=== PATIENT | male | born 1940 | race Two or more races ===

== ENCOUNTER 2021-06-08 18:31 | Inpatient (IN) | payer OTHER ==
[2021-06-08 18:39] VITALS: BMI 20.5
[2021-06-08] MEDS ORDERED: LACTATED RINGERS SOLUTION 1000 ML INFUS.BAG IV ONE (20:11)
[2021-06-08] MEDS ORDERED: HALOPERIDOL LACTATE 5 MG/ML IM STA (20:29)
[2021-06-08] MEDS ORDERED: HALOPERIDOL LACTATE 5 MG/ML ONE ×2 (20:30→20:57)
[2021-06-08] MEDS ORDERED: HALOPERIDOL LACTATE 5 MG/ML IM ONE (20:54)
[2021-06-08] MEDS ORDERED: LORazepam 2 MG/ML SDV VIAL ONE (21:17)
[2021-06-08] MEDS ORDERED: LORazepam 2 MG/ML SDV VIAL IM STA (21:17)
[2021-06-08 22:22] LABS: BASO % 0.4 % (0-2.0); HEMATOCRIT 55.9 % (35.4-49); HEMOGLOBIN 18.8 GM/dL (11.7-16.9); LYMPH % 11.3 % (8-40); MCH 31.8 pg (25.7-33.7); MCHC 33.6 g/dl (32.0-35.9); MEAN CELL VOLUME 94.5 fl (80-96); MEAN PLT VOLUME 10.4 fl (7.5-11.1); MONO % 9.5 % (3.8-10.2); NEUT % 78.8 % (42.8-82.8); PLATELET COUNT 257 10^3/uL (134-434); RBC 5.92 M/mm3 (4.00-5.60); RDW 15.3 % (11.9-15.9); WHITE BLOOD COUNT 14.6 K/mm3 (4.0-10.0)
[2021-06-08 22:28] LABS: INR 1.27 (0.83-1.09); PROTHROMBIN TIME (PATIENT) 14.3 SEC (9.7-13.0)
[2021-06-08 22:29] LABS: EPI CELLS 33 /uL (0-25.1); HYALINE CASTS 3 /uL (0-3.1); URINE APPEARANCE CLEAR; URINE BACTERIA 16 /uL (0-1359); URINE BILIRUBIN NEGATIVE (NEGATIVE); URINE COLOR DK YELLOW; URINE GLUCOSE (UA) NEGATIVE (NEGATIVE); URINE KETONE 1+ (NEGATIVE); URINE LEUK ESTERASE NEGATIVE (NEGATIVE); URINE NITRITE NEGATIVE (NEGATIVE); URINE PROTEIN 2+ (NEGATIVE); URINE RBC 19 /uL (0-23.9); URINE WBC 11 /uL (0-25.8)
[2021-06-08 22:30] LABS: ACTIVATED PTT 26.5 SECONDS (25.2-36.5)
[2021-06-08 22:40] LABS: CHLORIDE 117 mmol/L (98-107); SODIUM 151 mmol/L (136-145)
[2021-06-08 22:42] LABS: CALCIUM 9.8 mg/dL (8.5-10.1)
[2021-06-08 22:43] LABS: ALBUMIN 3.8 g/dl (3.4-5.0); ANION GAP 12 MMOL/L (8-16); BLOOD UREA NITROGEN 64.1 mg/dL (7-18); CO2 22 mmol/L (21-32); GLUCOSE,RANDOM 169 mg/dL (74-106); LIPASE 98 U/L (73-393)
[2021-06-08 22:46] LABS: CREATININE 2.1 mg/dL (0.55-1.3); SGOT/AST 54 U/L (15-37)
[2021-06-08 22:47] LABS: BILIRUBIN,TOTAL 1.1 mg/dL (0.2-1)
[2021-06-08 22:48] LABS: ALK PHOS 133 U/L (45-117)
[2021-06-08 23:16] LABS: SGPT/ALT 53 U/L (13-61)
[2021-06-09] MEDS ORDERED: LORazepam 2 MG/ML SDV VIAL ONE (00:57)
[2021-06-09] MEDS ORDERED: SODIUM CHLORIDE 1,000 ML IV STA (01:19)
[2021-06-09] MEDS ORDERED: VANCOMYCIN 1,000 MG in DEXTROSE 5%-WATER - 250 ML IVPB ONE (01:25)
[2021-06-09] MEDS ORDERED: AMPICILLIN - 2 GM in SODIUM CHLORIDE 100 ML IVPB ONE (01:25)
[2021-06-09] MEDS ORDERED: CEFTRIAXONE 1 GM in DEXTROSE 5%-WATER - 100 ML IVPB ONE (01:25)
[2021-06-09] MEDS ORDERED: ACYCLOVIR IVPB ONE (01:27)
[2021-06-09] MEDS ORDERED: WATER IVPB ONE (01:27)
[2021-06-09] MEDS ORDERED: DEXTROSE 5% IVPB ONE (01:27)
[2021-06-09] MEDS ORDERED: LORazepam 2 MG/ML SDV VIAL IVPUSH ONE (01:29)
[2021-06-09] MEDS ORDERED: VANCOMYCIN 1 GRAM (PRE-DOCKED) 1,000 MG/250 ML BAG IVPB ONE (01:36)
[2021-06-09] MEDS ORDERED: DEXAMETHASONE SOD PHOSPHATE 10 MG/1 ML VIAL IVPUSH ONE (01:37)
[2021-06-09 02:13] LABS: CSF APPEARANCE CLEAR (CLEAR); CSF COLOR COLORLESS (COLORLESS); CSF WBC 0 mm3 (0-5)
[2021-06-09 03:25] LABS: BF GLUCOSE (CSF ONLY) 115 mg/dL (40-70)
[2021-06-09] MEDS ORDERED: AMPICILLIN SODIUM 2 GM VIAL ONE ×2 (03:47→10:21)
[2021-06-09] MEDS ORDERED: DEXAMETHASONE SOD PHOSPHATE 10 MG/1 ML VIAL ONE (03:52)
[2021-06-09] MEDS: CEFTRIAXONE 2 GM in DEXTROSE 5%-WATER 100 ML IVPB SCH ×2 (04:56→23:44)
[2021-06-09] MEDS ORDERED: HEPARIN NA (PORCINE) 5,000 UNITS/ML 1ML VIAL ONE ×2 (05:20→15:57)
[2021-06-09] MEDS: HEPARIN NA (PORCINE) 5,000 UNITS/ML 1ML VIAL SQ SCH ×3 (06:30→23:16)
[2021-06-09] MEDS: ACYCLOVIR IVPB SCH ×2 (06:30→19:33)
[2021-06-09] MEDS: SODIUM CHLORIDE 0.45% 1,000 ML IV SCH (06:30)
[2021-06-09] MEDS: SODIUM CHLORIDE IVPB SCH ×2 (06:30→19:33)
[2021-06-09 09:03] LABS: HEMATOCRIT 47.3 % (35.4-49); MCH 32.1 pg (25.7-33.7); MCHC 33.8 g/dl (32.0-35.9); MEAN CELL VOLUME 94.8 fl (80-96); PLATELET COUNT 207 10^3/uL (134-434); RBC 4.98 M/mm3 (4.00-5.60); RDW 14.9 % (11.9-15.9); WHITE BLOOD COUNT 11.3 K/mm3 (4.0-10.0)
[2021-06-09 09:14] LABS: MAGNESIUM 2.8 mg/dL (1.8-2.4)
[2021-06-09 09:17] LABS: CREATININE 1.4 mg/dL (0.55-1.3); PHOSPHOROUS 3.7 mg/dL (2.5-4.9)
[2021-06-09 09:18] LABS: BILIRUBIN,TOTAL 0.6 mg/dL (0.2-1); TOT PROT 6.4 g/dl (6.4-8.2)
[2021-06-09 10:10] LABS: ANISOCYTOSIS 1+; MACROCYTOSIS 0; PLATELET ESTIMATE NORMAL
[2021-06-09] MEDS: INSULIN SLIDING SCALE (NOVOLOG) 1 VIAL SQ SCH ×3 (10:20→20:31)
[2021-06-09] MEDS: AMPICILLIN - 2 GM in SODIUM CHLORIDE 100 ML IVPB SCH ×3 (10:23→21:34)
[2021-06-09 12:53] LABS: CALCIUM 9.2 mg/dL (8.5-10.1)
[2021-06-09 12:54] LABS: BLOOD UREA NITROGEN 50.5 mg/dL (7-18)
[2021-06-09 12:57] LABS: CREATININE 1.4 mg/dL (0.55-1.3)
[2021-06-10] MEDS ORDERED: VANCOMYCIN/WATER FOR INJ (PEG) 750 MG/150 ML BAG IVPB SCH (01:00)
[2021-06-10] MEDS ORDERED: AMPICILLIN SODIUM 2 GM VIAL ONE ×3 (01:15→18:18)
[2021-06-10] MEDS ORDERED: SODIUM CHLORIDE 100 ML IVPB ONE ×3 (01:15→18:18)
[2021-06-10] MEDS: AMPICILLIN - 2 GM in SODIUM CHLORIDE 100 ML IVPB SCH ×3 (01:18→18:39)
[2021-06-10] MEDS ORDERED: DEXTROSE 5%-WATER 100 ML IVPB ONE ×2 (05:15→16:53)
[2021-06-10] MEDS: CEFTRIAXONE 2 GM in DEXTROSE 5%-WATER 100 ML IVPB SCH ×2 (05:18→16:56)
[2021-06-10] MEDS: HEPARIN NA (PORCINE) 5,000 UNITS/ML 1ML VIAL SQ SCH ×3 (05:51→21:34)
[2021-06-10] MEDS: ACYCLOVIR IVPB SCH ×2 (05:51→17:38)
[2021-06-10] MEDS: SODIUM CHLORIDE IVPB SCH ×2 (05:51→17:38)
[2021-06-10] MEDS: INSULIN SLIDING SCALE (NOVOLOG) 1 VIAL SQ SCH ×3 (06:04→17:02)
[2021-06-10] MEDS ORDERED: PT OWN MED DRAWER 7, Y5N ONE ×2 (10:15→16:53)
[2021-06-10 12:13] LABS: BASO % 0.4 % (0-2.0); HEMATOCRIT 49.8 % (35.4-49); HEMOGLOBIN 16.7 GM/dL (11.7-16.9); MCH 31.5 pg (25.7-33.7); MCHC 33.6 g/dl (32.0-35.9); MEAN CELL VOLUME 93.7 fl (80-96); MEAN PLT VOLUME 9.6 fl (7.5-11.1); MONO % 10.1 % (3.8-10.2); NEUT % 75.5 % (42.8-82.8); PLATELET COUNT 203 10^3/uL (134-434); RBC 5.31 M/mm3 (4.00-5.60); RDW 14.9 % (11.9-15.9); WHITE BLOOD COUNT 15.5 K/mm3 (4.0-10.0)
[2021-06-10 12:31] LABS: CALCIUM 9.1 mg/dL (8.5-10.1)
[2021-06-10 12:32] LABS: BLOOD UREA NITROGEN 44.1 mg/dL (7-18)
[2021-06-10 12:35] LABS: CREATININE 1.5 mg/dL (0.55-1.3)
[2021-06-10] MEDS: SODIUM CHLORIDE 0.45% 1,000 ML IV SCH (14:53)
[2021-06-11] MEDS ORDERED: VANCOMYCIN/WATER FOR INJ (PEG) 750 MG/150 ML BAG IVPB SCH (02:30)
[2021-06-11] MEDS ORDERED: AMPICILLIN - 2 GM in SODIUM CHLORIDE 100 ML IVPB SCH (02:30)
[2021-06-11] MEDS ORDERED: DEXTROSE 5% IVPB SCH (02:33)
[2021-06-11] MEDS ORDERED: WATER IVPB SCH (02:33)
[2021-06-11] MEDS ORDERED: VANCOMYCIN IVPB SCH (02:33)
[2021-06-11] MEDS: AMPICILLIN - 2 GM in SODIUM CHLORIDE 100 ML IVPB SCH ×3 (03:28→18:20)
[2021-06-11] MEDS ORDERED: DEXTROSE 5%-WATER 100 ML IVPB ONE ×2 (04:58→16:44)
[2021-06-11] MEDS: CEFTRIAXONE 2 GM in DEXTROSE 5%-WATER 100 ML IVPB SCH ×2 (05:00→16:45)
[2021-06-11] MEDS: ACYCLOVIR IVPB SCH ×2 (06:00→16:43)
[2021-06-11] MEDS: SODIUM CHLORIDE IVPB SCH ×2 (06:00→16:43)
[2021-06-11] MEDS: INSULIN SLIDING SCALE (NOVOLOG) 1 VIAL SQ SCH ×3 (06:54→16:50)
[2021-06-11] MEDS ORDERED: AMPICILLIN SODIUM 2 GM VIAL ONE ×2 (09:59→18:06)
[2021-06-11] MEDS ORDERED: SODIUM CHLORIDE 100 ML IVPB ONE ×2 (09:59→18:06)
[2021-06-11] MEDS: SODIUM CHLORIDE 0.45% 1,000 ML IV SCH ×3 (10:04→18:36)
[2021-06-11] MEDS: HEPARIN NA (PORCINE) 5,000 UNITS/ML 1ML VIAL SQ SCH ×2 (10:04→21:11)
[2021-06-11] MEDS ORDERED: SODIUM CHLORIDE 0.45% 1,000 ML IV SCH (10:21)
[2021-06-11 11:49] LABS: HEMOGLOBIN 16.8 GM/dL (11.7-16.9); MCH 31.5 pg (25.7-33.7); MCHC 33.6 g/dl (32.0-35.9); MEAN CELL VOLUME 93.6 fl (80-96); MEAN PLT VOLUME 10.2 fl (7.5-11.1); PLATELET COUNT 175 10^3/uL (134-434); RBC 5.34 M/mm3 (4.00-5.60); RDW 14.7 % (11.9-15.9); WHITE BLOOD COUNT 12.1 K/mm3 (4.0-10.0)
[2021-06-11 12:00] LABS: CALCIUM 9.3 mg/dL (8.5-10.1)
[2021-06-11 12:01] LABS: BLOOD UREA NITROGEN 40.3 mg/dL (7-18); MAGNESIUM 2.6 mg/dL (1.8-2.4)
[2021-06-11 12:05] LABS: CREATININE 1.3 mg/dL (0.55-1.3)
[2021-06-11] MEDS: VANCOMYCIN 750 MG PREMIX BAG (RESTRICTED TO ID ONLY) IVPB SCH ×2 (18:15→18:20)
[2021-06-12] MEDS: SODIUM CHLORIDE 0.45% 1,000 ML IV SCH ×2 (02:27→10:39)
[2021-06-12] MEDS: INSULIN SLIDING SCALE (NOVOLOG) 1 VIAL SQ SCH ×3 (06:11→17:49)
[2021-06-12 09:02] LABS: ALBUMIN 2.9 g/dl (3.4-5.0); CALCIUM 8.9 mg/dL (8.5-10.1); MAGNESIUM 2.4 mg/dL (1.8-2.4)
[2021-06-12 09:05] LABS: PHOSPHOROUS 2.7 mg/dL (2.5-4.9)
[2021-06-12 09:06] LABS: CREATININE 0.9 mg/dL (0.55-1.3)
[2021-06-12 09:07] LABS: BILIRUBIN,TOTAL 0.7 mg/dL (0.2-1); TOT PROT 6.1 g/dl (6.4-8.2)
[2021-06-12 09:21] LABS: BASO % 0.4 % (0-2.0); EOS % 1.5 % (0-4.5); HEMATOCRIT 48.9 % (35.4-49); HEMOGLOBIN 16.6 GM/dL (11.7-16.9); LYMPH % 17.2 % (8-40); MCH 31.9 pg (25.7-33.7); MCHC 33.9 g/dl (32.0-35.9); MEAN PLT VOLUME 10.8 fl (7.5-11.1); NEUT % 71.9 % (42.8-82.8); PLATELET COUNT 167 10^3/uL (134-434); RBC 5.21 M/mm3 (4.00-5.60); RDW 14.8 % (11.9-15.9); WHITE BLOOD COUNT 9.9 K/mm3 (4.0-10.0)
[2021-06-12] MEDS ORDERED: cefTRIAXone SODIUM 1 GM VIAL ONE (10:40)
[2021-06-12] MEDS ORDERED: DEXTROSE 5%-WATER - 50 ML IVPB ONE (10:40)
[2021-06-12] MEDS: HEPARIN NA (PORCINE) 5,000 UNITS/ML 1ML VIAL SQ SCH ×2 (10:46→22:02)
[2021-06-12] MEDS: CEFTRIAXONE 1 GM in DEXTROSE 5%-WATER - 50 ML IVPB SCH (10:46)
[2021-06-12] MEDS: AMINO ACIDS 4.25%/D5W 1,000 ML IV SCH (17:48)
[2021-06-13] MEDS: AMINO ACIDS 4.25%/D5W 1,000 ML IV SCH ×2 (05:15→18:15)
[2021-06-13] MEDS: INSULIN SLIDING SCALE (NOVOLOG) 1 VIAL SQ SCH ×3 (07:24→16:30)
[2021-06-13] MEDS ORDERED: cefTRIAXone SODIUM 1 GM VIAL ONE (10:34)
[2021-06-13] MEDS ORDERED: DEXTROSE 5%-WATER - 50 ML IVPB ONE (10:34)
[2021-06-13] MEDS: CEFTRIAXONE 1 GM in DEXTROSE 5%-WATER - 50 ML IVPB SCH (11:18)
[2021-06-13] MEDS: HEPARIN NA (PORCINE) 5,000 UNITS/ML 1ML VIAL SQ SCH ×2 (11:18→21:13)
[2021-06-13 12:42] LABS: BASO % 0.3 % (0-2.0); EOS % 2.1 % (0-4.5); HEMATOCRIT 47.7 % (35.4-49); HEMOGLOBIN 16.3 GM/dL (11.7-16.9); LYMPH % 18.8 % (8-40); MCH 31.8 pg (25.7-33.7); MCHC 34.2 g/dl (32.0-35.9); MEAN CELL VOLUME 92.8 fl (80-96); MEAN PLT VOLUME 10.4 fl (7.5-11.1); MONO % 10.1 % (3.8-10.2); NEUT % 68.7 % (42.8-82.8); PLATELET COUNT 149 10^3/uL (134-434); RBC 5.15 M/mm3 (4.00-5.60); RDW 14.3 % (11.9-15.9); WHITE BLOOD COUNT 10.1 K/mm3 (4.0-10.0)
[2021-06-13 13:07] LABS: ALBUMIN 2.7 g/dl (3.4-5.0); CALCIUM 8.3 mg/dL (8.5-10.1)
[2021-06-13 13:08] LABS: MAGNESIUM 2.1 mg/dL (1.8-2.4)
[2021-06-13 13:10] LABS: CREATININE 0.9 mg/dL (0.55-1.3)
[2021-06-13 13:12] LABS: BILIRUBIN,TOTAL 0.7 mg/dL (0.2-1); TOT PROT 5.8 g/dl (6.4-8.2)
[2021-06-14] MEDS: AMINO ACIDS 4.25%/D5W 1,000 ML IV SCH ×2 (06:09→17:20)
[2021-06-14] MEDS: INSULIN SLIDING SCALE (NOVOLOG) 1 VIAL SQ SCH ×3 (06:14→17:20)
[2021-06-14] MEDS: MULTIVIT INJ. ADULT COMBO WITH VIT K 1 COMBO 10 ML VIAL IV SCH (06:22)
[2021-06-14 09:38] LABS: BASO % 0.3 % (0-2.0); EOS % 1.9 % (0-4.5); HEMATOCRIT 45.9 % (35.4-49); HEMOGLOBIN 15.6 GM/dL (11.7-16.9); LYMPH % 18.3 % (8-40); MCH 31.1 pg (25.7-33.7); MEAN CELL VOLUME 91.6 fl (80-96); MEAN PLT VOLUME 10.4 fl (7.5-11.1); MONO % 10.8 % (3.8-10.2); NEUT % 68.7 % (42.8-82.8); PLATELET COUNT 148 10^3/uL (134-434); RBC 5.01 M/mm3 (4.00-5.60); RDW 14.1 % (11.9-15.9); WHITE BLOOD COUNT 8.9 K/mm3 (4.0-10.0)
[2021-06-14] MEDS ORDERED: DEXTROSE 5%-WATER - 50 ML IVPB ONE (09:50)
[2021-06-14] MEDS ORDERED: cefTRIAXone SODIUM 1 GM VIAL ONE (09:50)
[2021-06-14 10:09] LABS: ALBUMIN 2.6 g/dl (3.4-5.0); BLOOD UREA NITROGEN 30.6 mg/dL (7-18); CALCIUM 8.4 mg/dL (8.5-10.1); CREATININE 0.9 mg/dL (0.55-1.3); MAGNESIUM 2.1 mg/dL (1.8-2.4)
[2021-06-14 10:10] LABS: BILIRUBIN,TOTAL 0.7 mg/dL (0.2-1); TOT PROT 5.7 g/dl (6.4-8.2)
[2021-06-14] MEDS: CEFTRIAXONE 1 GM in DEXTROSE 5%-WATER - 50 ML IVPB SCH (10:22)
[2021-06-14] MEDS: HEPARIN NA (PORCINE) 5,000 UNITS/ML 1ML VIAL SQ SCH ×3 (10:23→21:02)
[2021-06-14] MEDS ORDERED: PENICILLIN G BENZATHINE 2,400,000 UNIT/4 ML PFS IM ONE (13:30)
[2021-06-14] MEDS: CEFUROXIME AXETIL 500 MG TABLET PO SCH (21:14)
[2021-06-14] MEDS: FAT EMULSIONS 250 ML IV SCH (21:20)
[2021-06-14] MEDS ORDERED: FAT EMULSIONS 20% 250 ML PREMIX INFUS.BAG IV SCH (22:00)
[2021-06-15] MEDS: AMINO ACIDS 4.25%/D5W 1,000 ML IV SCH ×2 (04:23→17:02)
[2021-06-15] MEDS: MULTIVIT INJ. ADULT COMBO WITH VIT K 1 COMBO 10 ML VIAL IV SCH (04:59)
[2021-06-15] MEDS: INSULIN SLIDING SCALE (NOVOLOG) 1 VIAL SQ SCH ×3 (06:02→16:22)
[2021-06-15] MEDS ORDERED: PT OWN MED DRAWER 7, Y5N ONE ×4 (09:25→20:24)
[2021-06-15] MEDS: HEPARIN NA (PORCINE) 5,000 UNITS/ML 1ML VIAL SQ SCH ×2 (09:29→22:30)
[2021-06-15] MEDS: CEFUROXIME AXETIL 500 MG TABLET PO SCH (09:30)
[2021-06-15] MEDS ORDERED: ACETAMINOPHEN 1000 MG/100 ML BAG IVPB ONE (11:30)
[2021-06-15] MEDS ORDERED: cefTRIAXone SODIUM 1 GM VIAL ONE (11:44)
[2021-06-15] MEDS ORDERED: DEXTROSE 5%-WATER - 50 ML IVPB ONE (11:44)
[2021-06-15] MEDS: CEFTRIAXONE 1 GM in DEXTROSE 5%-WATER - 50 ML IVPB SCH (11:54)
[2021-06-15] MEDS: FAT EMULSIONS 250 ML IV SCH (23:07)
[2021-06-16] MEDS: AMINO ACIDS 4.25%/D5W 1,000 ML IV SCH ×2 (04:40→17:17)
[2021-06-16] MEDS: INSULIN SLIDING SCALE (NOVOLOG) 1 VIAL SQ SCH ×3 (06:06→17:22)
[2021-06-16] MEDS: MULTIVIT INJ. ADULT COMBO WITH VIT K 1 COMBO 10 ML VIAL IV SCH (06:07)
[2021-06-16] MEDS ORDERED: cefTRIAXone SODIUM 1 GM VIAL ONE (09:42)
[2021-06-16] MEDS ORDERED: DEXTROSE 5%-WATER - 50 ML IVPB ONE (09:42)
[2021-06-16] MEDS: HEPARIN NA (PORCINE) 5,000 UNITS/ML 1ML VIAL SQ SCH ×2 (09:57→21:16)
[2021-06-16] MEDS: CEFTRIAXONE 1 GM in DEXTROSE 5%-WATER - 50 ML IVPB SCH (11:34)
[2021-06-16 12:49] LABS: BASO % 0.4 % (0-2.0); EOS % 2.1 % (0-4.5); HEMATOCRIT 43.1 % (35.4-49); HEMOGLOBIN 14.9 GM/dL (11.7-16.9); LYMPH % 18.9 % (8-40); MCH 31.5 pg (25.7-33.7); MCHC 34.6 g/dl (32.0-35.9); MEAN CELL VOLUME 90.9 fl (80-96); MEAN PLT VOLUME 11.1 fl (7.5-11.1); MONO % 10.6 % (3.8-10.2); PLATELET COUNT 150 10^3/uL (134-434); RBC 4.74 M/mm3 (4.00-5.60); RDW 14.2 % (11.9-15.9); WHITE BLOOD COUNT 9.8 K/mm3 (4.0-10.0)
[2021-06-16 13:15] LABS: ALBUMIN 2.5 g/dl (3.4-5.0); BLOOD UREA NITROGEN 27.1 mg/dL (7-18); CALCIUM 8.4 mg/dL (8.5-10.1)
[2021-06-16 13:18] LABS: BILIRUBIN,TOTAL 0.4 mg/dL (0.2-1); CREATININE 0.8 mg/dL (0.55-1.3); TOT PROT 5.7 g/dl (6.4-8.2)
[2021-06-16] MEDS: KCL 10 MEQ IVPB 10 MEQ/100 ML INFUS.BAG IVPB SCH ×3 (16:25→18:43)
[2021-06-16] MEDS ORDERED: ACETAMINOPHEN 1000 MG/100 ML BAG IVPB ONE (17:24)
[2021-06-16] MEDS ORDERED: PT OWN MED DRAWER 7, Y5N ONE (18:40)
[2021-06-16] MEDS: FAT EMULSIONS 250 ML IV SCH (21:13)
[2021-06-17] MEDS: AMINO ACIDS 4.25%/D5W 1,000 ML IV SCH ×2 (04:59→16:32)
[2021-06-17] MEDS: MULTIVIT INJ. ADULT COMBO WITH VIT K 1 COMBO 10 ML VIAL IV SCH (06:00)
[2021-06-17] MEDS: INSULIN SLIDING SCALE (NOVOLOG) 1 VIAL SQ SCH ×3 (06:03→16:51)
[2021-06-17] MEDS ORDERED: cefTRIAXone SODIUM 1 GM VIAL ONE (09:59)
[2021-06-17] MEDS ORDERED: DEXTROSE 5%-WATER - 50 ML IVPB ONE (09:59)
[2021-06-17] MEDS: HEPARIN NA (PORCINE) 5,000 UNITS/ML 1ML VIAL SQ SCH ×2 (10:01→21:34)
[2021-06-17] MEDS: CEFTRIAXONE 1 GM in DEXTROSE 5%-WATER - 50 ML IVPB SCH (10:01)
[2021-06-17 12:29] LABS: BASO % 0.2 % (0-2.0); EOS % 2.2 % (0-4.5); HEMATOCRIT 43.1 % (35.4-49); HEMOGLOBIN 14.9 GM/dL (11.7-16.9); LYMPH % 19.2 % (8-40); MCH 31.7 pg (25.7-33.7); MCHC 34.6 g/dl (32.0-35.9); MEAN CELL VOLUME 91.6 fl (80-96); MEAN PLT VOLUME 10.6 fl (7.5-11.1); MONO % 11.1 % (3.8-10.2); NEUT % 67.3 % (42.8-82.8); PLATELET COUNT 163 10^3/uL (134-434); RBC 4.71 M/mm3 (4.00-5.60); RDW 14.3 % (11.9-15.9); WHITE BLOOD COUNT 10.2 K/mm3 (4.0-10.0)
[2021-06-17 12:59] LABS: BLOOD UREA NITROGEN 27.4 mg/dL (7-18)
[2021-06-17 13:00] LABS: CALCIUM 8.7 mg/dL (8.5-10.1)
[2021-06-17 13:01] LABS: ALBUMIN 2.7 g/dl (3.4-5.0)
[2021-06-17 13:04] LABS: CREATININE 0.9 mg/dL (0.55-1.3)
[2021-06-17 13:05] LABS: BILIRUBIN,TOTAL 0.4 mg/dL (0.2-1); TOT PROT 6.1 g/dl (6.4-8.2)
[2021-06-17] MEDS ORDERED: MINERAL OIL 30 ML UNIT-DOSE CUP TP ONE (14:00)
[2021-06-17] MEDS: LYTES/YERBA SANTA 60 ML SPRAY MM SCH ×2 (14:23→21:40)
[2021-06-17] MEDS: KCL 10 MEQ IVPB 10 MEQ/100 ML INFUS.BAG IVPB SCH ×2 (16:32→17:40)
[2021-06-17] MEDS ORDERED: PT OWN MED DRAWER 7, Y5N ONE (21:09)
[2021-06-17] MEDS: FAT EMULSIONS 250 ML IV SCH (21:34)
[2021-06-18] MEDS: AMINO ACIDS 4.25%/D5W 1,000 ML IV SCH ×4 (03:03→16:53)
[2021-06-18] MEDS: MULTIVIT INJ. ADULT COMBO WITH VIT K 1 COMBO 10 ML VIAL IV SCH (05:26)
[2021-06-18] MEDS: INSULIN SLIDING SCALE (NOVOLOG) 1 VIAL SQ SCH ×3 (06:26→17:01)
[2021-06-18] MEDS ORDERED: cefTRIAXone SODIUM 1 GM VIAL ONE (10:31)
[2021-06-18] MEDS ORDERED: DEXTROSE 5%-WATER - 50 ML IVPB ONE (10:31)
[2021-06-18] MEDS: HEPARIN NA (PORCINE) 5,000 UNITS/ML 1ML VIAL SQ SCH (10:40)
[2021-06-18] MEDS: CEFTRIAXONE 1 GM in DEXTROSE 5%-WATER - 50 ML IVPB SCH (10:40)
[2021-06-18] MEDS: LYTES/YERBA SANTA 60 ML SPRAY MM SCH ×2 (10:47→21:23)
[2021-06-18] MEDS: FAT EMULSION/OLIVE/SOY/PHOSPHO 250 ML IV SCH (22:30)
[2021-06-19] MEDS: AMINO ACIDS 4.25%/D5W 1,000 ML IV SCH ×4 (02:52→18:36)
[2021-06-19] MEDS ORDERED: PT OWN MED DRAWER 7, Y5N ONE (06:13)
[2021-06-19] MEDS: INSULIN SLIDING SCALE (NOVOLOG) 1 VIAL SQ SCH ×3 (06:34→17:10)
[2021-06-19] MEDS: MULTIVIT INJ. ADULT COMBO WITH VIT K 1 COMBO 10 ML VIAL IV SCH (08:08)
[2021-06-19] MEDS ORDERED: GLUCAGON 1 MG KIT IVPUSH ONE (11:58)
[2021-06-19] MEDS ORDERED: cefTRIAXone SODIUM 1 GM VIAL ONE (13:06)
[2021-06-19] MEDS ORDERED: DEXTROSE 5%-WATER - 50 ML IVPB ONE (13:07)
[2021-06-19] MEDS: CEFTRIAXONE 1 GM in DEXTROSE 5%-WATER - 50 ML IVPB SCH (13:27)
[2021-06-19] MEDS: LYTES/YERBA SANTA 60 ML SPRAY MM SCH ×2 (13:28→21:56)
[2021-06-19] MEDS ORDERED: PANTOPRAZOLE SODIUM 40 MG in SODIUM CHLORIDE 100 ML IVPB SCH (14:00)
[2021-06-19] MEDS: PANTOPRAZOLE SODIUM 40 MG VIAL IVPUSH SCH ×2 (16:02→21:56)
[2021-06-19 16:03] LABS: BASO % 0.5 % (0-2.0); EOS % 1.2 % (0-4.5); HEMATOCRIT 37.9 % (35.4-49); HEMOGLOBIN 13.1 GM/dL (11.7-16.9); LYMPH % 13.8 % (8-40); MCH 31.4 pg (25.7-33.7); MCHC 34.6 g/dl (32.0-35.9); MEAN CELL VOLUME 90.8 fl (80-96); MEAN PLT VOLUME 9.9 fl (7.5-11.1); MONO % 9.2 % (3.8-10.2); NEUT % 75.3 % (42.8-82.8); PLATELET COUNT 192 10^3/uL (134-434); RBC 4.17 M/mm3 (4.00-5.60); RDW 14.8 % (11.9-15.9); WHITE BLOOD COUNT 13.5 K/mm3 (4.0-10.0)
[2021-06-19 16:14] LABS: CALCIUM 8.9 mg/dL (8.5-10.1)
[2021-06-19 16:15] LABS: ALBUMIN 2.5 g/dl (3.4-5.0); BLOOD UREA NITROGEN 28.8 mg/dL (7-18)
[2021-06-19 16:20] LABS: BILIRUBIN,TOTAL 0.3 mg/dL (0.2-1); TOT PROT 5.8 g/dl (6.4-8.2)
[2021-06-19] MEDS: KCL 10 MEQ IVPB 10 MEQ/100 ML INFUS.BAG IVPB SCH ×3 (17:04→21:54)
[2021-06-19] MEDS: FAT EMULSION/OLIVE/SOY/PHOSPHO 250 ML IV SCH (21:56)
[2021-06-20] MEDS: AMINO ACIDS 4.25%/D5W 1,000 ML IV SCH ×2 (06:41→17:50)
[2021-06-20] MEDS: MULTIVIT INJ. ADULT COMBO WITH VIT K 1 COMBO 10 ML VIAL IV SCH (06:42)
[2021-06-20] MEDS: INSULIN SLIDING SCALE (NOVOLOG) 1 VIAL SQ SCH ×3 (06:42→17:50)
[2021-06-20] MEDS ORDERED: ACETAMINOPHEN 1000 MG/100 ML BAG IVPB PRN (09:07)
[2021-06-20] MEDS: PANTOPRAZOLE SODIUM 40 MG VIAL IVPUSH SCH ×2 (11:14→21:49)
[2021-06-20] MEDS: LYTES/YERBA SANTA 60 ML SPRAY MM SCH ×2 (12:07→21:49)
[2021-06-20] MEDS: FAT EMULSION/OLIVE/SOY/PHOSPHO 250 ML IV SCH (21:48)
[2021-06-21] MEDS: MULTIVIT INJ. ADULT COMBO WITH VIT K 1 COMBO 10 ML VIAL IV SCH (05:55)
[2021-06-21] MEDS: AMINO ACIDS 4.25%/D5W 1,000 ML IV SCH ×2 (05:55→17:12)
[2021-06-21] MEDS: INSULIN SLIDING SCALE (NOVOLOG) 1 VIAL SQ SCH ×3 (06:07→16:47)
[2021-06-21] MEDS: PANTOPRAZOLE SODIUM 40 MG VIAL IVPUSH SCH ×2 (10:27→21:35)
[2021-06-21] MEDS: LYTES/YERBA SANTA 60 ML SPRAY MM SCH ×2 (10:32→21:35)
[2021-06-21] MEDS ORDERED: PENICILLIN G BENZATHINE 2,400,000 UNIT/4 ML PFS IM ONE (18:23)
[2021-06-21] MEDS: HEPARIN NA (PORCINE) 5,000 UNITS/ML 1ML VIAL SQ SCH (21:35)
[2021-06-22] MEDS: INSULIN SLIDING SCALE (NOVOLOG) 1 VIAL SQ SCH ×3 (06:01→16:53)
[2021-06-22] MEDS: MULTIVIT INJ. ADULT COMBO WITH VIT K 1 COMBO 10 ML VIAL IV SCH (06:50)
[2021-06-22 10:07] LABS: BASO % 0.6 % (0-2.0); HEMATOCRIT 39.2 % (35.4-49); HEMOGLOBIN 13.2 GM/dL (11.7-16.9); LYMPH % 15.8 % (8-40); MCHC 33.7 g/dl (32.0-35.9); MEAN CELL VOLUME 92.1 fl (80-96); MEAN PLT VOLUME 9.8 fl (7.5-11.1); MONO % 8.7 % (3.8-10.2); NEUT % 72.9 % (42.8-82.8); PLATELET COUNT 279 10^3/uL (134-434); RBC 4.26 M/mm3 (4.00-5.60); RDW 14.9 % (11.9-15.9); WHITE BLOOD COUNT 10.7 K/mm3 (4.0-10.0)
[2021-06-22 10:11] LABS: INR 1.12 (0.83-1.09); PROTHROMBIN TIME (PATIENT) 12.6 SEC (9.7-13.0)
[2021-06-22 10:27] LABS: CALCIUM 8.9 mg/dL (8.5-10.1)
[2021-06-22 10:28] LABS: ALBUMIN 2.8 g/dl (3.4-5.0); MAGNESIUM 2.4 mg/dL (1.8-2.4)
[2021-06-22 10:33] LABS: BILIRUBIN,TOTAL 0.5 mg/dL (0.2-1); TOT PROT 5.9 g/dl (6.4-8.2)
[2021-06-22] MEDS: PANTOPRAZOLE SODIUM 40 MG VIAL IVPUSH SCH ×2 (11:56→21:01)
[2021-06-22] MEDS: LYTES/YERBA SANTA 60 ML SPRAY MM SCH ×2 (11:56→21:01)
[2021-06-22] MEDS: HEPARIN NA (PORCINE) 5,000 UNITS/ML 1ML VIAL SQ SCH ×2 (11:56→21:01)
[2021-06-23] MEDS: INSULIN SLIDING SCALE (NOVOLOG) 1 VIAL SQ SCH ×3 (06:02→17:38)
[2021-06-23] MEDS ORDERED: PT OWN MED DRAWER 7, Y5N ONE (10:35)
[2021-06-23] MEDS: PANTOPRAZOLE SODIUM 40 MG VIAL IVPUSH SCH ×2 (10:48→21:05)
[2021-06-23] MEDS: HEPARIN NA (PORCINE) 5,000 UNITS/ML 1ML VIAL SQ SCH ×2 (10:48→21:05)
[2021-06-23] MEDS: LYTES/YERBA SANTA 60 ML SPRAY MM SCH ×2 (13:11→21:04)
[2021-06-24] MEDS: ACETAMINOPHEN 650 MG/20.3 ML ORAL SOLUTION (CUPS) GT PRN ×3 (00:44→22:50)
[2021-06-24] MEDS: INSULIN SLIDING SCALE (NOVOLOG) 1 VIAL SQ SCH ×3 (06:10→17:58)
[2021-06-24] MEDS: HEPARIN NA (PORCINE) 5,000 UNITS/ML 1ML VIAL SQ SCH ×2 (11:18→21:02)
[2021-06-24] MEDS: PANTOPRAZOLE SODIUM 40 MG VIAL IVPUSH SCH ×2 (11:19→21:02)
[2021-06-24] MEDS: LYTES/YERBA SANTA 60 ML SPRAY MM SCH ×2 (11:19→21:02)
[2021-06-25] MEDS: INSULIN SLIDING SCALE (NOVOLOG) 1 VIAL SQ SCH ×3 (06:12→16:08)
[2021-06-25] MEDS: ACETAMINOPHEN 650 MG/20.3 ML ORAL SOLUTION (CUPS) GT PRN ×2 (08:13→15:39)
[2021-06-25] MEDS ORDERED: PT OWN MED DRAWER 7, Y5N ONE (09:38)
[2021-06-25] MEDS: PANTOPRAZOLE SODIUM 40 MG VIAL IVPUSH SCH ×2 (09:48→21:53)
[2021-06-25] MEDS: HEPARIN NA (PORCINE) 5,000 UNITS/ML 1ML VIAL SQ SCH ×2 (09:48→21:53)
[2021-06-25] MEDS: LYTES/YERBA SANTA 60 ML SPRAY MM SCH ×2 (09:49→21:53)
[2021-06-26] MEDS: INSULIN SLIDING SCALE (NOVOLOG) 1 VIAL SQ SCH ×3 (06:21→16:55)
[2021-06-26] MEDS: PANTOPRAZOLE SODIUM 40 MG VIAL IVPUSH SCH (10:25)
[2021-06-26] MEDS: LYTES/YERBA SANTA 60 ML SPRAY MM SCH (10:27)
[2021-06-26] MEDS: HEPARIN NA (PORCINE) 5,000 UNITS/ML 1ML VIAL SQ SCH (10:27)
[2021-06-26 21:47] VITALS: BP 109/50; PULSE 93; TEMP 98.4
[2021-06-28] MEDS ORDERED: PENICILLIN G BENZATHINE 2,400,000 UNIT/4 ML PFS IM ONE (18:24)
== END 2021-06-26 09:50 | DRG 689 ==
LOC: JER 18:31 → JERBED 06-09 02:15 → J8W 06-09 23:04
PROVIDERS: ADMIT Internal Medicine; ATTEND Nurse Practitioner Acute Care
PROC: 009U3ZX Drainage of Spinal Canal, Percutaneous Approach, Diagnostic (ICD-10-PCS; principal; 2021-06-08)
PROC: 0DH63UZ Insertion of Feeding Device into Stomach, Percutaneous Approach (ICD-10-PCS; 2021-06-19)
PROC: 3E0G76Z Introduction of Nutritional Substance into Upper GI, Via Natural or Artificial Opening (ICD-10-PCS; 2021-06-19)
DX: N39.0 Urinary tract infection, site not specified (principal); G93.41 Metabolic encephalopathy; E43 Unspecified severe protein-calorie malnutrition; N17.9 Acute kidney failure, unspecified; E87.0 Hyperosmolality and hypernatremia; M62.82 Rhabdomyolysis; R64 Cachexia; A52.3 Neurosyphilis, unspecified; F03.90 Unspecified dementia, unspecified severity, without behavioral disturbance, psychotic disturbance, mood disturbance, and anxiety; E11.9 Type 2 diabetes mellitus without complications; Z79.84 Long term (current) use of oral hypoglycemic drugs; E86.0 Dehydration; N40.0 Benign prostatic hyperplasia without lower urinary tract symptoms; A53.0 Latent syphilis, unspecified as early or late; R79.89 Other specified abnormal findings of blood chemistry; Z68.20 Body mass index [BMI] 20.0-20.9, adult
CPT/HCPCS: 36415; 49440; 70450-TC; 71045-TC-FY; 71250-TC; 74018-TC-FY; 74176-TC; 76705-TC; 76775-TC; 80048; 80053; 81003; 82140; 82550; 82553; 82570; 82607; 82945; 82962; 83036; 83615; 83690; 83735; 84100; 84156; 84157; 84166; 84300; 84443; 84478; 84484; 85025; 85027; 85610; 85730; 86592; 86593; 86694; 86735; 86765; 86780; 86787; 86788; 86789; 86850; 86900; 86901; 87040; 87070; 87086; 87205; 87529; 93005; 93010; 97161-GP; 99285-25; C9803; J0131; J1100; J1644; U0003; U0005

== ENCOUNTER 2021-08-03 18:22 | Inpatient (IN) | payer OTHER ==
[2021-08-03] MEDS ORDERED: LORazepam 2 MG/ML SDV VIAL IVPUSH ONE (20:04)
[2021-08-03] MEDS ORDERED: HALOPERIDOL LACTATE 5 MG/ML IV ONE (20:34)
[2021-08-03 20:37] LABS: CALCIUM 8.8 mg/dL (8.5-10.1)
[2021-08-03 20:38] LABS: BLOOD UREA NITROGEN 48.7 mg/dL (7-18)
[2021-08-03 20:41] LABS: CREATININE 1.4 mg/dL (0.55-1.3)
[2021-08-03 20:42] LABS: BILIRUBIN,TOTAL 0.5 mg/dL (0.2-1); TOT PROT 6.5 g/dl (6.4-8.2)
[2021-08-03] MEDS ORDERED: HALOPERIDOL LACTATE 5 MG/ML ONE (21:09)
[2021-08-03] MEDS: SODIUM CHLORIDE 0.45% 1,000 ML IV SCH (21:34)
[2021-08-03 21:56] LABS: BASO % 0.7 % (0-2.0); EOS % 5.3 % (0-4.5); HEMATOCRIT 38.9 % (35.4-49); HEMOGLOBIN 12.8 GM/dL (11.7-16.9); LYMPH % 28.5 % (8-40); MCH 31.3 pg (25.7-33.7); MEAN PLT VOLUME 10.9 fl (7.5-11.1); MONO % 10.3 % (3.8-10.2); NEUT % 55.2 % (42.8-82.8); PLATELET COUNT 159 10^3/uL (134-434); WHITE BLOOD COUNT 9.6 K/mm3 (4.0-10.0)
[2021-08-03 22:06] LABS: EPI CELLS 20 /uL (0-25.1); HYALINE CASTS 1 /uL (0-3.1); PH,URINE 5.5 (5.0-8.0); URINE APPEARANCE CLEAR; URINE BACTERIA 11 /uL (0-1359); URINE BILIRUBIN NEGATIVE (NEGATIVE); URINE COLOR YELLOW; URINE GLUCOSE (UA) NEGATIVE (NEGATIVE); URINE KETONE 1+ (NEGATIVE); URINE LEUK ESTERASE TRACE (NEGATIVE); URINE NITRITE NEGATIVE (NEGATIVE); URINE PROTEIN 1+ (NEGATIVE); URINE RBC 18 /uL (0-23.9); URINE WBC 7 /uL (0-25.8)
[2021-08-04 09:56] LABS: BASO % 0.9 % (0-2.0); EOS % 6.2 % (0-4.5); HEMATOCRIT 41.2 % (35.4-49); HEMOGLOBIN 12.7 GM/dL (11.7-16.9); LYMPH % 40.1 % (8-40); MCH 30.2 pg (25.7-33.7); MCHC 30.8 g/dl (32.0-35.9); MEAN CELL VOLUME 97.9 fl (80-96); MEAN PLT VOLUME 10.7 fl (7.5-11.1); MONO % 8.2 % (3.8-10.2); NEUT % 44.6 % (42.8-82.8); PLATELET COUNT 169 10^3/uL (134-434); RBC 4.21 M/mm3 (4.00-5.60); WHITE BLOOD COUNT 9.7 K/mm3 (4.0-10.0)
[2021-08-04 10:27] LABS: ALBUMIN 2.9 g/dl (3.4-5.0); BLOOD UREA NITROGEN 40.5 mg/dL (7-18); CALCIUM 8.7 mg/dL (8.5-10.1)
[2021-08-04 10:30] LABS: CREATININE 1.4 mg/dL (0.55-1.3)
[2021-08-04 10:32] LABS: BILIRUBIN,TOTAL 0.5 mg/dL (0.2-1); TOT PROT 6.2 g/dl (6.4-8.2)
[2021-08-05 12:10] LABS: BASO % 0.4 % (0-2.0); HEMATOCRIT 40.1 % (35.4-49); HEMOGLOBIN 12.4 GM/dL (11.7-16.9); LYMPH % 21.4 % (8-40); MCH 30.3 pg (25.7-33.7); MEAN CELL VOLUME 97.7 fl (80-96); MEAN PLT VOLUME 11.3 fl (7.5-11.1); MONO % 7.2 % (3.8-10.2); PLATELET COUNT 161 10^3/uL (134-434); RBC 4.11 M/mm3 (4.00-5.60); RDW 17.7 % (11.9-15.9); WHITE BLOOD COUNT 12.2 K/mm3 (4.0-10.0)
[2021-08-05 12:33] LABS: ALBUMIN 2.8 g/dl (3.4-5.0); BLOOD UREA NITROGEN 30.4 mg/dL (7-18); CALCIUM 8.4 mg/dL (8.5-10.1)
[2021-08-05 12:36] LABS: CREATININE 1.2 mg/dL (0.55-1.3)
[2021-08-05 12:38] LABS: TOT PROT 5.9 g/dl (6.4-8.2)
[2021-08-05] MEDS: SODIUM CHLORIDE 0.45% 1,000 ML IV SCH (21:56)
[2021-08-06 07:32] LABS: BASO % 0.4 % (0-2.0); EOS % 2.4 % (0-4.5); HEMATOCRIT 39.9 % (35.4-49); HEMOGLOBIN 12.7 GM/dL (11.7-16.9); LYMPH % 22.5 % (8-40); MCH 30.6 pg (25.7-33.7); MCHC 31.9 g/dl (32.0-35.9); MEAN CELL VOLUME 95.9 fl (80-96); MONO % 7.8 % (3.8-10.2); NEUT % 66.9 % (42.8-82.8); PLATELET COUNT 154 10^3/uL (134-434); RBC 4.16 M/mm3 (4.00-5.60); RDW 17.5 % (11.9-15.9)
[2021-08-06 07:48] LABS: ALBUMIN 2.6 g/dl (3.4-5.0); CALCIUM 7.7 mg/dL (8.5-10.1)
[2021-08-06 07:49] LABS: BLOOD UREA NITROGEN 22.4 mg/dL (7-18)
[2021-08-06 07:52] LABS: TOT PROT 5.8 g/dl (6.4-8.2)
[2021-08-06 07:53] LABS: BILIRUBIN,TOTAL 0.7 mg/dL (0.2-1)
[2021-08-06] MEDS: SODIUM BICARBONATE 650 MG TABLET PO SCH (18:52)
[2021-08-07] MEDS: SODIUM BICARBONATE 650 MG TABLET PO SCH (09:48)
[2021-08-07] MEDS ORDERED: SODIUM BICARBONATE 650 MG TABLET GT SCH (13:12)
[2021-08-07] MEDS ORDERED: ACETAMINOPHEN 650 MG/20.3 ML ORAL SOLUTION (CUPS) PEG ONE (18:47)
[2021-08-08] MEDS ORDERED: ACETAMINOPHEN 1000 MG/100 ML BAG IVPB ONE (21:27)
[2021-08-09] MEDS ORDERED: MULTIVIT-MINERALS ORAL LIQUID PO SCH (10:00)
[2021-08-09] MEDS ORDERED: SODIUM BICARBONATE 650 MG TABLET GT SCH (10:00)
[2021-08-09] MEDS ORDERED: ASCORBIC ACID 250 MG TABLET (FP) PO SCH ×2 (10:00)
[2021-08-09] MEDS ORDERED: ZINC SULFATE 220 MG CAPSULE (FP) PO SCH (10:00)
[2021-08-09 10:44] VITALS: BP 101/60; PULSE 107; TEMP 97.9
== END 2021-08-09 13:30 | disposition home health service (06) | DRG 682 ==
LOC: JER 18:22 → JERBED 22:47 → J4W 08-04 01:54 → J7W 08-08 18:15
PROVIDERS: ADMIT Internal Medicine; ATTEND Family Medicine
DX: N17.9 Acute kidney failure, unspecified (principal); E43 Unspecified severe protein-calorie malnutrition; G93.41 Metabolic encephalopathy; E87.0 Hyperosmolality and hypernatremia; N39.0 Urinary tract infection, site not specified; F03.91 Unspecified dementia, unspecified severity, with behavioral disturbance; R64 Cachexia; E11.9 Type 2 diabetes mellitus without complications; E86.0 Dehydration; Z68.20 Body mass index [BMI] 20.0-20.9, adult; D72.829 Elevated white blood cell count, unspecified; N18.9 Chronic kidney disease, unspecified; N40.0 Benign prostatic hyperplasia without lower urinary tract symptoms
CPT/HCPCS: 36415; 70450-TC; 71045-TC-FY; 72125-TC; 72170-TC-FY; 73502-TC-RT-FY; 80053; 81003; 82550; 84484; 85025; 87040; 87086; 93005; 93010; 97162-GP; 99285-25; C9803; U0003; U0005

== ENCOUNTER 2021-09-29 16:18 | Emergency (ER) | payer OTHER ==
[2021-09-29 16:36] VITALS: BP 97/60; PULSE 84; TEMP 97.7; BMI 21.5
== END 2021-09-29 19:23 | disposition home or self-care (01) ==
LOC: JER 16:18
DX: K94.23 Gastrostomy malfunction (principal)
CPT/HCPCS: 99281-25

== ENCOUNTER 2022-02-15 16:56 | Inpatient (IN) | payer OTHER ==
[2022-02-15] MEDS ORDERED: ACETAMINOPHEN 1000 MG/100 ML BAG IVPB ONE (17:46)
[2022-02-15] MEDS ORDERED: VANCOMYCIN 1 GM in D5W (PRE-DOCKED) 1,000 MG/250 ML IVPB ONE (18:30)
[2022-02-15] MEDS ORDERED: ACETAMINOPHEN INJECTION 100 ML IVPB ONE (18:37)
[2022-02-15] MEDS ORDERED: VANCOMYCIN/WATER FOR INJ (PEG) 1,000 MG/200 ML BAG IVPB ONE (18:37)
[2022-02-15 19:06] LABS: BASO % 0.4 % (0-2.0); EOS % 0.6 % (0-4.5); HEMATOCRIT 42.4 % (35.4-49); MCH 31.1 pg (25.7-33.7); MCHC 33.1 g/dl (32.0-35.9); MEAN PLT VOLUME 8.8 fl (7.5-11.1); MONO % 7.6 % (3.8-10.2); NEUT % 64.4 % (42.8-82.8); PLATELET COUNT 196 10^3/uL (134-434); RBC 4.51 M/mm3 (4.00-5.60); RDW 16.5 % (11.9-15.9); WHITE BLOOD COUNT 16.6 K/mm3 (4.0-10.0)
[2022-02-15 19:12] LABS: INR 1.19 (0.83-1.09); PROTHROMBIN TIME (PATIENT) 13.7 SEC (9.7-13.0)
[2022-02-15 19:15] LABS: ACTIVATED PTT 30.2 SECONDS (25.2-36.5)
[2022-02-15 19:18] LABS: CALCIUM 8.6 mg/dL (8.5-10.1)
[2022-02-15 19:19] LABS: ALBUMIN 3.5 g/dl (3.4-5.0)
[2022-02-15 19:22] LABS: CREATININE 1.4 mg/dL (0.55-1.3)
[2022-02-15 19:23] LABS: BILIRUBIN,TOTAL 0.4 mg/dL (0.2-1); TOT PROT 7.1 g/dl (6.4-8.2)
[2022-02-15] MEDS ORDERED: LACTATED RINGERS SOLUTION 1000 ML INFUS.BAG IV ONE (20:20)
[2022-02-15] MEDS ORDERED: morphine SULFATE 4 MG/ML VIAL IVPUSH ONE (20:42)
[2022-02-15] MEDS ORDERED: morphine SULFATE 4 MG/ML VIAL ONE (20:48)
[2022-02-15 21:02] LABS: EPI CELLS 1 /uL (0-25.1); HYALINE CASTS 1 /uL (0-3.1); PH,URINE 7.5 (5.0-8.0); URINE APPEARANCE CLEAR; URINE BACTERIA 618 /uL (0-1359); URINE BILIRUBIN NEGATIVE (NEGATIVE); URINE COLOR YELLOW; URINE GLUCOSE (UA) NEGATIVE (NEGATIVE); URINE KETONE NEGATIVE (NEGATIVE); URINE LEUK ESTERASE 2+ (NEGATIVE); URINE NITRITE NEGATIVE (NEGATIVE); URINE PROTEIN TRACE (NEGATIVE); URINE RBC 10 /uL (0-23.9); URINE UROBILINOGEN 0.2 mg/dL (0.2-1.0); URINE WBC 864 /uL (0-25.8)
[2022-02-16] MEDS ORDERED: CEFTRIAXONE 1 GM in DEXTROSE 5%-WATER - 100 ML IVPB ONE (00:38)
[2022-02-16] MEDS ORDERED: CEFTRIAXONE 1 GM/50 ML BAG ONE (01:00)
[2022-02-16] MEDS ORDERED: PIPERACILLIN/TAZOB 2.25 GM 2.25 GM/50 ML BAG IVPB ONE (03:49)
[2022-02-16] MEDS: ACETAMINOPHEN 1000 MG/100 ML BAG IVPB SCH ×3 (03:55→20:35)
[2022-02-16] MEDS: SODIUM CHLORIDE 1,000 ML IV SCH (03:55)
[2022-02-16] MEDS: PIPERACILLIN/TAZOB 2.25 GM 2.25 GM in DEXTROSE 5%-WATER - 50 ML IVPB SCH ×4 (04:28→21:53)
[2022-02-16] MEDS: HEPARIN NA (PORCINE) 5,000 UNITS/ML 1ML VIAL SQ SCH ×3 (06:04→21:09)
[2022-02-16] MEDS ORDERED: VANCOMYCIN 1 GM in D5W (PRE-DOCKED) 1,000 MG/250 ML IVPB SCH (10:00)
[2022-02-16] MEDS ORDERED: PIPERACILLIN/TAZOBACTAM 2.25 GM VIAL IVPB ONE (14:48)
[2022-02-16] MEDS ORDERED: VANCOMYCIN/WATER FOR INJ (PEG) 1,000 MG/200 ML BAG IVPB SCH ×2 (18:00)
[2022-02-16] MEDS ORDERED: LORazepam 2 MG/ML SDV VIAL IM PRN (20:57)
[2022-02-16] MEDS ORDERED: LORazepam 2 MG/ML SDV VIAL IM ONE (20:57)
[2022-02-17] MEDS: PIPERACILLIN/TAZOB 2.25 GM 2.25 GM in DEXTROSE 5%-WATER - 50 ML IVPB SCH (02:39)
[2022-02-17] MEDS: ACETAMINOPHEN 1000 MG/100 ML BAG IVPB SCH (03:12)
[2022-02-17] MEDS: SODIUM CHLORIDE 1,000 ML IV SCH ×2 (03:41→10:40)
[2022-02-17] MEDS: HEPARIN NA (PORCINE) 5,000 UNITS/ML 1ML VIAL SQ SCH ×3 (06:12→21:41)
[2022-02-17 08:30] LABS: BASO % 0.6 % (0-2.0); HEMATOCRIT 43.3 % (35.4-49); HEMOGLOBIN 14.1 GM/dL (11.7-16.9); LYMPH % 33.4 % (8-40); MCH 30.4 pg (25.7-33.7); MCHC 32.7 g/dl (32.0-35.9); MEAN PLT VOLUME 9.8 fl (7.5-11.1); MONO % 7.1 % (3.8-10.2); NEUT % 56.9 % (42.8-82.8); PLATELET COUNT 197 10^3/uL (134-434); RBC 4.65 M/mm3 (4.00-5.60); RDW 16.2 % (11.9-15.9); WHITE BLOOD COUNT 11.9 K/mm3 (4.0-10.0)
[2022-02-17 08:35] LABS: INR 1.13 (0.83-1.09)
[2022-02-17 08:49] LABS: ALBUMIN 3.2 g/dl (3.4-5.0); CALCIUM 8.2 mg/dL (8.5-10.1)
[2022-02-17 08:50] LABS: BLOOD UREA NITROGEN 14.4 mg/dL (7-18)
[2022-02-17 08:53] LABS: CREATININE 1.4 mg/dL (0.55-1.3)
[2022-02-17 08:54] LABS: BILIRUBIN,TOTAL 0.6 mg/dL (0.2-1); TOT PROT 6.8 g/dl (6.4-8.2)
[2022-02-17] MEDS: ERTAPENEM SODIUM 1 GM in SODIUM CHLORIDE 50 ML IVPB SCH (21:03)
[2022-02-18] MEDS: SODIUM CHLORIDE 1,000 ML IV SCH ×2 (01:16→06:10)
[2022-02-18] MEDS: HEPARIN NA (PORCINE) 5,000 UNITS/ML 1ML VIAL SQ SCH ×3 (06:17→21:11)
[2022-02-18] MEDS: DEXTROSE 5%-LACTATED RINGERS 1,000 ML IV SCH (08:00)
[2022-02-18 09:18] LABS: BASO % 0.6 % (0-2.0); EOS % 2.6 % (0-4.5); HEMATOCRIT 42.7 % (35.4-49); HEMOGLOBIN 14.4 GM/dL (11.7-16.9); LYMPH % 37.9 % (8-40); MCH 31.3 pg (25.7-33.7); MCHC 33.7 g/dl (32.0-35.9); MEAN PLT VOLUME 8.7 fl (7.5-11.1); MONO % 7.6 % (3.8-10.2); NEUT % 51.3 % (42.8-82.8); PLATELET COUNT 220 10^3/uL (134-434); RBC 4.59 M/mm3 (4.00-5.60); RDW 15.8 % (11.9-15.9); WHITE BLOOD COUNT 9.1 K/mm3 (4.0-10.0)
[2022-02-18] MEDS: ERTAPENEM SODIUM 1 GM in SODIUM CHLORIDE 50 ML IVPB SCH (09:51)
[2022-02-18 09:53] LABS: BLOOD UREA NITROGEN 14.3 mg/dL (7-18); CALCIUM 8.5 mg/dL (8.5-10.1); MAGNESIUM 2.2 mg/dL (1.8-2.4)
[2022-02-18 09:56] LABS: CREATININE 1.2 mg/dL (0.55-1.3); PHOSPHOROUS 2.8 mg/dL (2.5-4.9)
[2022-02-18] MEDS: PIPERACILLIN/TAZOB 2.25 GM 2.25 GM in DEXTROSE 5%-WATER - 50 ML IVPB SCH ×2 (14:41→14:42)
[2022-02-18 20:40] VITALS: RESP 18
[2022-02-19] MEDS: DEXTROSE 5%-LACTATED RINGERS 1,000 ML IV SCH ×3 (04:44→14:34)
[2022-02-19] MEDS: HEPARIN NA (PORCINE) 5,000 UNITS/ML 1ML VIAL SQ SCH ×3 (06:24→21:24)
[2022-02-19 08:59] LABS: BASO % 0.4 % (0-2.0); EOS % 2.6 % (0-4.5); HEMATOCRIT 44.7 % (35.4-49); HEMOGLOBIN 14.8 GM/dL (11.7-16.9); LYMPH % 29.9 % (8-40); MCH 30.5 pg (25.7-33.7); MCHC 33.2 g/dl (32.0-35.9); MEAN PLT VOLUME 8.6 fl (7.5-11.1); MONO % 9.8 % (3.8-10.2); NEUT % 57.3 % (42.8-82.8); PLATELET COUNT 231 10^3/uL (134-434); RBC 4.86 M/mm3 (4.00-5.60); RDW 15.5 % (11.9-15.9); WHITE BLOOD COUNT 8.5 K/mm3 (4.0-10.0)
[2022-02-19 09:14] LABS: CALCIUM 8.8 mg/dL (8.5-10.1)
[2022-02-19 09:16] LABS: ALBUMIN 3.5 g/dl (3.4-5.0); BLOOD UREA NITROGEN 13.6 mg/dL (7-18); MAGNESIUM 2.3 mg/dL (1.8-2.4)
[2022-02-19 09:25] LABS: BILIRUBIN,TOTAL 0.4 mg/dL (0.2-1); CREATININE 1.2 mg/dL (0.55-1.3); PHOSPHOROUS 2.4 mg/dL (2.5-4.9); TOT PROT 7.1 g/dl (6.4-8.2)
[2022-02-19] MEDS: ERTAPENEM SODIUM 1 GM in SODIUM CHLORIDE 50 ML IVPB SCH (09:41)
[2022-02-19 13:16] VITALS: BMI 22.1
[2022-02-19] MEDS ORDERED: POTASSIUM PHOSPHATE 15 MM in DEXTROSE 5%-WATER - 250 ML IVPB ONE (16:42)
[2022-02-20] MEDS: HEPARIN NA (PORCINE) 5,000 UNITS/ML 1ML VIAL SQ SCH ×3 (06:00→21:28)
[2022-02-20] MEDS: ERTAPENEM SODIUM 1 GM in SODIUM CHLORIDE 50 ML IVPB SCH (09:28)
[2022-02-20 17:06] LABS: BASO % 0.4 % (0-2.0); EOS % 2.5 % (0-4.5); HEMATOCRIT 45.1 % (35.4-49); HEMOGLOBIN 15.3 GM/dL (11.7-16.9); LYMPH % 40.3 % (8-40); MCH 31.1 pg (25.7-33.7); MCHC 33.9 g/dl (32.0-35.9); MEAN CELL VOLUME 91.8 fl (80-96); MEAN PLT VOLUME 8.8 fl (7.5-11.1); MONO % 8.1 % (3.8-10.2); NEUT % 48.7 % (42.8-82.8); PLATELET COUNT 237 10^3/uL (134-434); RBC 4.92 M/mm3 (4.00-5.60); RDW 15.6 % (11.9-15.9); WHITE BLOOD COUNT 7.9 K/mm3 (4.0-10.0)
[2022-02-20 17:14] LABS: CALCIUM 8.5 mg/dL (8.5-10.1)
[2022-02-20 17:15] LABS: ALBUMIN 3.3 g/dl (3.4-5.0); BLOOD UREA NITROGEN 13.1 mg/dL (7-18)
[2022-02-20 17:16] LABS: MAGNESIUM 2.3 mg/dL (1.8-2.4)
[2022-02-20 17:18] LABS: CREATININE 1.2 mg/dL (0.55-1.3); PHOSPHOROUS 3.5 mg/dL (2.5-4.9)
[2022-02-20 17:20] LABS: BILIRUBIN,TOTAL 0.3 mg/dL (0.2-1)
[2022-02-21] MEDS: HEPARIN NA (PORCINE) 5,000 UNITS/ML 1ML VIAL SQ SCH ×3 (05:08→21:13)
[2022-02-21] MEDS: ERTAPENEM SODIUM 1 GM in SODIUM CHLORIDE 50 ML IVPB SCH (09:08)
[2022-02-22] MEDS: HEPARIN NA (PORCINE) 5,000 UNITS/ML 1ML VIAL SQ SCH ×2 (05:43→14:14)
[2022-02-22] MEDS ORDERED: ERTAPENEM SODIUM 1 GM in SODIUM CHLORIDE 50 ML IVPB SCH (08:24)
[2022-02-22 09:50] LABS: BASO % 0.6 % (0-2.0); EOS % 2.9 % (0-4.5); HEMATOCRIT 44.7 % (35.4-49); HEMOGLOBIN 14.7 GM/dL (11.7-16.9); LYMPH % 36.2 % (8-40); MCH 30.6 pg (25.7-33.7); MCHC 32.9 g/dl (32.0-35.9); MONO % 8.2 % (3.8-10.2); NEUT % 52.1 % (42.8-82.8); PLATELET COUNT 264 10^3/uL (134-434); RBC 4.81 M/mm3 (4.00-5.60); RDW 16.2 % (11.9-15.9); WHITE BLOOD COUNT 10.8 K/mm3 (4.0-10.0)
[2022-02-22 10:27] LABS: ALBUMIN 3.5 g/dl (3.4-5.0)
[2022-02-22 10:28] LABS: CREATININE 1.2 mg/dL (0.55-1.3)
[2022-02-22 10:29] LABS: BILIRUBIN,TOTAL 0.3 mg/dL (0.2-1); CALCIUM 8.9 mg/dL (8.5-10.1); TOT PROT 7.2 g/dl (6.4-8.2)
[2022-02-22 10:30] LABS: BLOOD UREA NITROGEN 19.2 mg/dL (7-18); MAGNESIUM 2.6 mg/dL (1.8-2.4)
[2022-02-22 10:31] LABS: PHOSPHOROUS 3.2 mg/dL (2.5-4.9)
[2022-02-22 13:53] VITALS: BP 118/62; PULSE 76; TEMP 98.7
== END 2022-02-22 16:32 | disposition home health service (06) | DRG 920 ==
LOC: JER 16:56 → JERBED 02-16 01:41 → J6S 02-16 05:26
PROVIDERS: ADMIT Internal Medicine; ATTEND Internal Medicine
DX: T85.628A Displacement of other specified internal prosthetic devices, implants and grafts, initial encounter (principal); K56.7 Ileus, unspecified; N39.0 Urinary tract infection, site not specified; L03.311 Cellulitis of abdominal wall; N17.9 Acute kidney failure, unspecified; Z16.12 Extended spectrum beta lactamase (ESBL) resistance; F03.90 Unspecified dementia, unspecified severity, without behavioral disturbance, psychotic disturbance, mood disturbance, and anxiety; E11.9 Type 2 diabetes mellitus without complications; I95.9 Hypotension, unspecified; K31.89 Other diseases of stomach and duodenum; Y83.9 Surgical procedure, unspecified as the cause of abnormal reaction of the patient, or of later complication, without mention of misadventure at the time of the procedure; I10 Essential (primary) hypertension; N40.0 Benign prostatic hyperplasia without lower urinary tract symptoms
CPT/HCPCS: 36415; 71045-TC-FY; 74018-TC-FY; 74176-TC; 76775-TC; 80048; 80053; 81003; 83605; 83690; 83735; 84100; 84443; 85025; 85610; 85730; 86850; 86900; 86901; 87040; 87086; 87186; 93005; 93010; 99285-25; C9803-CS; J1644; U0003; U0005

== ENCOUNTER 2022-06-11 18:51 | Inpatient (IN) | payer OTHER ==
[2022-06-11 22:20] LABS: INR 1.05 (0.83-1.09); PROTHROMBIN TIME (PATIENT) 12.1 SEC (9.7-13.0)
[2022-06-11 22:23] LABS: ACTIVATED PTT 32.2 SECONDS (25.2-36.5)
[2022-06-11 22:25] LABS: BASO % 0.6 % (0-2.0); EOS % 2.9 % (0-4.5); HEMATOCRIT 46.4 % (35.4-49); HEMOGLOBIN 14.9 GM/dL (11.7-16.9); LYMPH % 48.6 % (8-40); MCH 30.5 pg (25.7-33.7); MCHC 32.2 g/dl (32.0-35.9); MEAN CELL VOLUME 94.7 fl (80-96); MEAN PLT VOLUME 9.2 fl (7.5-11.1); MONO % 8.2 % (3.8-10.2); NEUT % 39.7 % (42.8-82.8); PLATELET COUNT 178 10^3/uL (134-434); RDW 16.2 % (11.9-15.9); WHITE BLOOD COUNT 11.9 K/mm3 (4.0-10.0)
[2022-06-11 22:37] LABS: CHLORIDE 110 mmol/L (98-107); SODIUM 146 mmol/L (136-145)
[2022-06-11 22:39] LABS: ALBUMIN 3.7 g/dl (3.4-5.0); ANION GAP 8 MMOL/L (8-16); BLOOD UREA NITROGEN 22.1 mg/dL (7-18); CALCIUM 8.9 mg/dL (8.5-10.1); CO2 28 mmol/L (21-32); GLUCOSE,RANDOM 133 mg/dL (74-106)
[2022-06-11 22:42] LABS: CREATININE 1.5 mg/dL (0.55-1.3); SGPT/ALT 17 U/L (13-61)
[2022-06-11 22:43] LABS: SGOT/AST 21 U/L (15-37)
[2022-06-11 22:44] LABS: BILIRUBIN,TOTAL 0.2 mg/dL (0.2-1); TOT PROT 7.3 g/dl (6.4-8.2)
[2022-06-11 22:45] LABS: ALK PHOS 101 U/L (45-117)
[2022-06-11 22:53] LABS: LACTIC ACID 3.6 mmol/L (0.4-2.0)
[2022-06-11] MEDS ORDERED: SODIUM CHLORIDE 0.9% 500 ML INFUS.BAG IV ONE (23:05)
[2022-06-11] MEDS ORDERED: VANCOMYCIN 1 GM in D5W (PRE-DOCKED) 1,000 MG/250 ML IVPB ONE (23:21)
[2022-06-11] MEDS ORDERED: VANCOMYCIN 500 MG VIAL (RESTRICTED TO ID ONLY) ONE (23:55)
[2022-06-12 00:29] LABS: EPI CELLS 6 /uL (0-25.1); HYALINE CASTS 0 /uL (0-3.1); URINE APPEARANCE CLOUDY; URINE BACTERIA >9,000 /uL (0-1359); URINE BILIRUBIN NEGATIVE (NEGATIVE); URINE COLOR YELLOW; URINE GLUCOSE (UA) NEGATIVE (NEGATIVE); URINE KETONE NEGATIVE (NEGATIVE); URINE LEUK ESTERASE 3+ (NEGATIVE); URINE NITRITE NEGATIVE (NEGATIVE); URINE PROTEIN TRACE (NEGATIVE); URINE RBC 32 /uL (0-23.9); URINE WBC 1775 /uL (0-25.8)
[2022-06-12] MEDS ORDERED: CEFTRIAXONE 1,000 MG in DEXTROSE 5%-WATER - 50 ML IVPB ONE (00:33)
[2022-06-12] MEDS ORDERED: CEFTRIAXONE 1 GM/50 ML BAG ONE (00:45)
[2022-06-12] MEDS ORDERED: SODIUM CHLORIDE 1,000 ML IV SCH (02:30)
[2022-06-12 03:11] LABS: LACTIC ACID 4.8 mmol/L (0.4-2.0)
[2022-06-12] MEDS ORDERED: ERTAPENEM SODIUM 0.5 GM in SODIUM CHLORIDE 50 ML IVPB SCH (03:15)
[2022-06-12] MEDS ORDERED: LORazepam 2 MG/ML SDV VIAL IVPUSH ONE (03:22)
[2022-06-12] MEDS: LORazepam 2 MG/ML SDV VIAL IM ONE ×2 (04:01)
[2022-06-12] MEDS ORDERED: HEPARIN NA (PORCINE) 5,000 UNITS/ML 1ML VIAL ONE (07:53)
[2022-06-12] MEDS: HEPARIN NA (PORCINE) 5,000 UNITS/ML 1ML VIAL SQ SCH ×3 (07:56→23:05)
[2022-06-12] MEDS: INSULIN SLIDING SCALE (NOVOLOG) 1 VIAL SQ SCH ×4 (07:57→23:58)
[2022-06-12 09:21] LABS: BASO % 0.2 % (0-2.0); HEMATOCRIT 44.8 % (35.4-49); HEMOGLOBIN 14.2 GM/dL (11.7-16.9); LYMPH % 24.7 % (8-40); MCHC 31.6 g/dl (32.0-35.9); MEAN CELL VOLUME 94.8 fl (80-96); MEAN PLT VOLUME 9.1 fl (7.5-11.1); MONO % 9.5 % (3.8-10.2); NEUT % 64.6 % (42.8-82.8); PLATELET COUNT 167 10^3/uL (134-434); RBC 4.73 M/mm3 (4.00-5.60); RDW 16.4 % (11.9-15.9); WHITE BLOOD COUNT 12.3 K/mm3 (4.0-10.0)
[2022-06-12 09:44] LABS: CALCIUM 8.2 mg/dL (8.5-10.1)
[2022-06-12 09:45] LABS: ALBUMIN 3.4 g/dl (3.4-5.0); BLOOD UREA NITROGEN 16.3 mg/dL (7-18); MAGNESIUM 2.1 mg/dL (1.8-2.4)
[2022-06-12 09:48] LABS: CREATININE 1.4 mg/dL (0.55-1.3); PHOSPHOROUS 1.9 mg/dL (2.5-4.9)
[2022-06-12 09:49] LABS: BILIRUBIN,TOTAL 0.4 mg/dL (0.2-1); TOT PROT 6.6 g/dl (6.4-8.2)
[2022-06-12] MEDS ORDERED: AMPICILLIN NA/SULBACTAM NA 1.5 GM VIAL ONE (13:44)
[2022-06-12] MEDS: SODIUM CHLORIDE 1,000 ML IV SCH (13:49)
[2022-06-12] MEDS: AMPICILLIN NA/SULBACTAM NA 1.5 GM in SODIUM CHLORIDE 100 ML IVPB SCH ×2 (13:49→17:33)
[2022-06-12] MEDS ORDERED: AMPICILLIN NA/SULBACTAM NA 1.5 GM in SODIUM CHLORIDE 100 ML IVPB SCH (21:00)
[2022-06-13] MEDS ORDERED: VANCOMYCIN 1 GM/200 ML PREMIX BAG (RESTRICTED TO ID ONLY) IVPB SCH
[2022-06-13 06:14] VITALS: RESP 20
[2022-06-13] MEDS: HEPARIN NA (PORCINE) 5,000 UNITS/ML 1ML VIAL SQ SCH ×3 (06:45→22:46)
[2022-06-13] MEDS: AMPICILLIN NA/SULBACTAM NA 1.5 GM in SODIUM CHLORIDE 100 ML IVPB SCH ×3 (06:45→17:38)
[2022-06-13] MEDS: INSULIN SLIDING SCALE (NOVOLOG) 1 VIAL SQ SCH ×4 (06:45→23:10)
[2022-06-13] MEDS ORDERED: INSULIN (NOVOLOG) ASPART 100 UNITS/ML 10ML VIAL ONE (07:05)
[2022-06-13 11:01] LABS: BASO % 0.6 % (0-2.0); EOS % 4.1 % (0-4.5); HEMATOCRIT 50.4 % (35.4-49); HEMOGLOBIN 16.2 GM/dL (11.7-16.9); LYMPH % 42.3 % (8-40); MCH 30.3 pg (25.7-33.7); MEAN CELL VOLUME 94.5 fl (80-96); MEAN PLT VOLUME 9.2 fl (7.5-11.1); MONO % 8.6 % (3.8-10.2); NEUT % 44.4 % (42.8-82.8); PLATELET COUNT 154 10^3/uL (134-434); RBC 5.34 M/mm3 (4.00-5.60); RDW 16.4 % (11.9-15.9); WHITE BLOOD COUNT 11.2 K/mm3 (4.0-10.0)
[2022-06-13 11:18] LABS: CALCIUM 9.1 mg/dL (8.5-10.1)
[2022-06-13 11:19] LABS: BLOOD UREA NITROGEN 14.1 mg/dL (7-18); MAGNESIUM 2.4 mg/dL (1.8-2.4)
[2022-06-13 11:22] LABS: CREATININE 1.2 mg/dL (0.55-1.3)
[2022-06-13 11:23] LABS: PHOSPHOROUS 3.4 mg/dL (2.5-4.9)
[2022-06-13 14:48] VITALS: BMI 23.5
[2022-06-13] MEDS ORDERED: ACETAMINOPHEN 325 MG TABLET (FP) PO PRN (16:34)
[2022-06-13] MEDS: SODIUM CHLORIDE 1,000 ML IV SCH (17:38)
[2022-06-14] MEDS ORDERED: VANCOMYCIN 1 GM/200 ML PREMIX BAG (RESTRICTED TO ID ONLY) IVPB SCH
[2022-06-14] MEDS: AMPICILLIN NA/SULBACTAM NA 1.5 GM in SODIUM CHLORIDE 100 ML IVPB SCH ×2 (02:43→10:32)
[2022-06-14] MEDS: HEPARIN NA (PORCINE) 5,000 UNITS/ML 1ML VIAL SQ SCH ×3 (06:30→23:26)
[2022-06-14] MEDS: INSULIN SLIDING SCALE (NOVOLOG) 1 VIAL SQ SCH ×4 (06:31→23:27)
[2022-06-14 12:15] LABS: BASO % 0.7 % (0-2.0); EOS % 3.5 % (0-4.5); HEMATOCRIT 48.6 % (35.4-49); HEMOGLOBIN 15.2 GM/dL (11.7-16.9); LYMPH % 45.7 % (8-40); MCH 29.6 pg (25.7-33.7); MCHC 31.4 g/dl (32.0-35.9); MEAN CELL VOLUME 94.4 fl (80-96); MEAN PLT VOLUME 9.1 fl (7.5-11.1); MONO % 8.4 % (3.8-10.2); NEUT % 41.7 % (42.8-82.8); PLATELET COUNT 188 10^3/uL (134-434); RBC 5.15 M/mm3 (4.00-5.60); RDW 16.4 % (11.9-15.9); WHITE BLOOD COUNT 10.3 K/mm3 (4.0-10.0)
[2022-06-14 12:36] LABS: CALCIUM 9.1 mg/dL (8.5-10.1)
[2022-06-14 12:37] LABS: ALBUMIN 3.6 g/dl (3.4-5.0); BLOOD UREA NITROGEN 15.6 mg/dL (7-18); MAGNESIUM 2.4 mg/dL (1.8-2.4)
[2022-06-14 12:40] LABS: CREATININE 1.3 mg/dL (0.55-1.3)
[2022-06-14 12:41] LABS: BILIRUBIN,TOTAL 0.8 mg/dL (0.2-1); TOT PROT 7.2 g/dl (6.4-8.2)
[2022-06-15 06:33] VITALS: BP 145/70; PULSE 67; TEMP 98
[2022-06-15] MEDS: HEPARIN NA (PORCINE) 5,000 UNITS/ML 1ML VIAL SQ SCH ×2 (06:41→13:05)
[2022-06-15] MEDS: INSULIN SLIDING SCALE (NOVOLOG) 1 VIAL SQ SCH ×2 (06:41→12:21)
== END 2022-06-15 15:03 | disposition home or self-care (01) | DRG 394 ==
LOC: JER 18:51 → JERBED 23:40 → OBSVTOIN 06-12 02:06 → J8W 06-12 14:45
PROVIDERS: ADMIT Internal Medicine; ATTEND Nurse Practitioner Acute Care
PROC: 0D20XUZ Change Feeding Device in Upper Intestinal Tract, External Approach (ICD-10-PCS; principal; 2022-06-11)
DX: K94.22 Gastrostomy infection (principal); E87.0 Hyperosmolality and hypernatremia; E87.20 Acidosis, unspecified; L03.319 Cellulitis of trunk, unspecified; N17.9 Acute kidney failure, unspecified; K94.23 Gastrostomy malfunction; N40.0 Benign prostatic hyperplasia without lower urinary tract symptoms; E87.8 Other disorders of electrolyte and fluid balance, not elsewhere classified; F01.50 Vascular dementia, unspecified severity, without behavioral disturbance, psychotic disturbance, mood disturbance, and anxiety; R82.71 Bacteriuria; E11.22 Type 2 diabetes mellitus with diabetic chronic kidney disease; N18.9 Chronic kidney disease, unspecified; Y83.8 Other surgical procedures as the cause of abnormal reaction of the patient, or of later complication, without mention of misadventure at the time of the procedure
CPT/HCPCS: 0241U-QW; 36415; 71045-TC-FY; 74018-TC-FY; 76775-TC; 80048; 80053; 81003; 82550; 82553; 82962; 83605; 83735; 84100; 85025; 85610; 85730; 87040; 87070; 87077; 87086; 87186; 87205; 93005; 93010; 99285-25; G0378; J1644

== ENCOUNTER 2022-07-10 15:06 | Emergency (ER) | payer OTHER ==
[2022-07-10 15:47] VITALS: BMI 24.7
[2022-07-10] MEDS ORDERED: MIDODRINE HCL 5 MG TABLET PO ONE (16:42)
[2022-07-10] MEDS ORDERED: SODIUM CHLORIDE 0.9% 500 ML INFUS.BAG IV ONE (19:17)
[2022-07-10 20:40] LABS: BASO % 0.5 % (0-2.0); EOS % 2.1 % (0-4.5); HEMATOCRIT 44.3 % (35.4-49); HEMOGLOBIN 14.7 GM/dL (11.7-16.9); LYMPH % 39.8 % (8-40); MCH 31.1 pg (25.7-33.7); MCHC 33.1 g/dl (32.0-35.9); MEAN CELL VOLUME 93.9 fl (80-96); MEAN PLT VOLUME 8.2 fl (7.5-11.1); MONO % 6.8 % (3.8-10.2); NEUT % 50.8 % (42.8-82.8); PLATELET COUNT 192 10^3/uL (134-434); RBC 4.71 M/mm3 (4.00-5.60); RDW 16.5 % (11.9-15.9); WHITE BLOOD COUNT 9.4 K/mm3 (4.0-10.0)
[2022-07-10 20:49] LABS: INR 1.11 (0.83-1.09); PROTHROMBIN TIME (PATIENT) 12.8 SEC (9.7-13.0)
[2022-07-10 20:51] LABS: ACTIVATED PTT 32.4 SECONDS (25.2-36.5)
[2022-07-10 21:09] LABS: CALCIUM 8.3 mg/dL (8.5-10.1)
[2022-07-10 21:10] LABS: ALBUMIN 3.5 g/dl (3.4-5.0)
[2022-07-10 21:13] LABS: CREATININE 1.5 mg/dL (0.55-1.3)
[2022-07-10 21:14] LABS: BILIRUBIN,TOTAL 0.2 mg/dL (0.2-1)
[2022-07-10 21:15] LABS: TOT PROT 6.7 g/dl (6.4-8.2)
[2022-07-10 21:26] LABS: EPI CELLS 1 /uL (0-25.1); HYALINE CASTS 1 /uL (0-3.1); PH,URINE 5.5 (5.0-8.0); URINE APPEARANCE CLEAR; URINE BACTERIA 2396 /uL (0-1359); URINE BILIRUBIN NEGATIVE (NEGATIVE); URINE COLOR YELLOW; URINE GLUCOSE (UA) NEGATIVE (NEGATIVE); URINE KETONE NEGATIVE (NEGATIVE); URINE LEUK ESTERASE 2+ (NEGATIVE); URINE NITRITE NEGATIVE (NEGATIVE); URINE PROTEIN NEGATIVE (NEGATIVE); URINE RBC 14 /uL (0-23.9); URINE UROBILINOGEN 0.2 mg/dL (0.2-1.0); URINE WBC 355 /uL (0-25.8)
[2022-07-10] MEDS ORDERED: SULFAMETHOXAZOLE/TRIMETHOPRIM 800MG/160MG D.S. TABLET PO ONE (21:31)
[2022-07-10] MEDS ORDERED: SULFAMETHOXAZOLE/TRIMETHOPRIM 800MG/160MG D.S. TABLET ONE (21:45)
[2022-07-10 22:01] VITALS: BP 118/63; PULSE 70; RESP 18; TEMP 97.8
== END 2022-07-10 22:03 | disposition home or self-care (01) ==
LOC: JER 15:06
DX: N39.0 Urinary tract infection, site not specified (principal); R31.9 Hematuria, unspecified
CPT/HCPCS: 36415; 80053; 81003; 85025; 85610; 85730; 87086; 87186; 99284-25

== ENCOUNTER 2022-09-11 01:00 | Inpatient (IN) | payer OTHER ==
[2022-09-11 02:07] LABS: BASO % 0.7 % (0-2.0); EOS % 1.4 % (0-4.5); HEMATOCRIT 44.7 % (35.4-49); HEMOGLOBIN 15.1 GM/dL (11.7-16.9); LYMPH % 33.7 % (8-40); MCH 30.9 pg (25.7-33.7); MCHC 33.7 g/dl (32.0-35.9); MEAN CELL VOLUME 91.9 fl (80-96); MEAN PLT VOLUME 8.4 fl (7.5-11.1); MONO % 8.6 % (3.8-10.2); NEUT % 55.6 % (42.8-82.8); PLATELET COUNT 235 10^3/uL (134-434); RBC 4.87 M/mm3 (4.00-5.60); RDW 14.2 % (11.9-15.9); WHITE BLOOD COUNT 11.7 K/mm3 (4.0-10.0)
[2022-09-11 02:16] LABS: INR 1.14 (0.83-1.09); PROTHROMBIN TIME (PATIENT) 13.2 SEC (9.7-13.0)
[2022-09-11 02:31] LABS: ALBUMIN 3.5 g/dl (3.4-5.0); BLOOD UREA NITROGEN 28.6 mg/dL (7-18)
[2022-09-11] MEDS ORDERED: LIDOCAINE HCL 2% JELLY 6 ML TP ONE (02:33)
[2022-09-11 02:34] LABS: CREATININE 1.5 mg/dL (0.55-1.3)
[2022-09-11 02:36] LABS: BILIRUBIN,TOTAL 0.4 mg/dL (0.2-1); TOT PROT 7.2 g/dl (6.4-8.2)
[2022-09-11] MEDS ORDERED: SODIUM CHLORIDE 0.9% 500 ML INFUS.BAG IV ONE (02:37)
[2022-09-11] MEDS ORDERED: ACETAMINOPHEN 1000 MG/100 ML BAG IVPB ONE (02:37)
[2022-09-11] MEDS ORDERED: ACETAMINOPHEN INJECTION 100 ML IVPB ONE (02:46)
[2022-09-11 03:11] LABS: URINE APPEARANCE CLEAR; URINE BILIRUBIN NEGATIVE (NEGATIVE); URINE COLOR YELLOW; URINE GLUCOSE (UA) NEGATIVE (NEGATIVE); URINE KETONE NEGATIVE (NEGATIVE); URINE LEUK ESTERASE NEGATIVE (NEGATIVE); URINE NITRITE NEGATIVE (NEGATIVE); URINE PROTEIN NEGATIVE (NEGATIVE); URINE UROBILINOGEN 0.2 mg/dL (0.2-1.0)
[2022-09-11] MEDS ORDERED: CEFTRIAXONE 1 GM/50 ML BAG ONE ×2 (05:25→11:53)
[2022-09-11] MEDS: CEFTRIAXONE 1,000 MG in DEXTROSE 5%-WATER - 50 ML IVPB ONE ×2 (05:26→12:43)
[2022-09-11] MEDS ORDERED: SODIUM CHLORIDE 1,000 ML IV SCH (05:30)
[2022-09-11] MEDS ORDERED: HALOPERIDOL LACTATE 5 MG/ML IM ONE ×3 (06:17→06:25)
[2022-09-11] MEDS ORDERED: LORazepam 2 MG/ML SDV VIAL IM PRN (08:30)
[2022-09-11] MEDS ORDERED: CEFTRIAXONE 1 GM in DEXTROSE 5%-WATER - 50 ML IVPB SCH (10:00)
[2022-09-11 11:03] LABS: BASO % 0.5 % (0-2.0); HEMATOCRIT 44.6 % (35.4-49); HEMOGLOBIN 15.1 GM/dL (11.7-16.9); LYMPH % 33.1 % (8-40); MCH 30.9 pg (25.7-33.7); MCHC 33.8 g/dl (32.0-35.9); MEAN CELL VOLUME 91.4 fl (80-96); MEAN PLT VOLUME 9.1 fl (7.5-11.1); MONO % 9.4 % (3.8-10.2); PLATELET COUNT 208 10^3/uL (134-434); RBC 4.88 M/mm3 (4.00-5.60); RDW 14.1 % (11.9-15.9); WHITE BLOOD COUNT 10.6 K/mm3 (4.0-10.0)
[2022-09-11 11:29] LABS: CALCIUM 8.9 mg/dL (8.5-10.1)
[2022-09-11 11:30] LABS: BLOOD UREA NITROGEN 25.5 mg/dL (7-18); MAGNESIUM 2.5 mg/dL (1.8-2.4)
[2022-09-11 11:32] LABS: CREATININE 1.5 mg/dL (0.55-1.3); PHOSPHOROUS 3.1 mg/dL (2.5-4.9)
[2022-09-11] MEDS: DONEPEZIL HCL 5 MG TABLET (FP) PO SCH (12:44)
[2022-09-11] MEDS: INSULIN SLIDING SCALE (NOVOLOG) 1 VIAL SQ SCH ×4 (12:44→23:33)
[2022-09-11] MEDS: FOLIC ACID 1 MG TABLET (FP) PO SCH (12:45)
[2022-09-11] MEDS: MEMANTINE HCL 5 MG TABLET (UD) PO SCH ×3 (12:45→23:16)
[2022-09-11] MEDS: MIDODRINE HCL 5 MG TABLET PO SCH ×2 (12:45→22:30)
[2022-09-11] MEDS: traZODone HCL 50 MG TABLET (FP) PO SCH (12:45)
[2022-09-11] MEDS ORDERED: HEPARIN NA (PORCINE) 5,000 UNITS/ML 1ML VIAL ONE (12:47)
[2022-09-11] MEDS: HEPARIN NA (PORCINE) 5,000 UNITS/ML 1ML VIAL SQ SCH ×3 (12:59→23:16)
[2022-09-11] MEDS: ERTAPENEM SODIUM 1 GM in SODIUM CHLORIDE 50 ML IVPB SCH (13:04)
[2022-09-11] MEDS: AMMONIUM LACTATE 12% CREAM 140 GM TUBE TP SCH (14:33)
[2022-09-11] MEDS: KETOCONAZOLE 2% CREAM - 60GM TUBE TP SCH ×3 (14:33→23:16)
[2022-09-11] MEDS: DEXTROSE 5%-0.45% SALINE 1,000 ML IV SCH (23:34)
[2022-09-12] MEDS: DEXTROSE 5%-0.45% SALINE 1,000 ML IV SCH ×3 (01:46→20:48)
[2022-09-12] MEDS: HEPARIN NA (PORCINE) 5,000 UNITS/ML 1ML VIAL SQ SCH (06:39)
[2022-09-12] MEDS ORDERED: INSULIN (NOVOLOG) ASPART 100 UNITS/ML 10ML VIAL ONE ×3 (06:46→22:14)
[2022-09-12] MEDS: INSULIN SLIDING SCALE (NOVOLOG) 1 VIAL SQ SCH ×4 (06:47→23:03)
[2022-09-12 08:33] LABS: INR 1.2 (0.83-1.09); PROTHROMBIN TIME (PATIENT) 13.9 SEC (9.7-13.0)
[2022-09-12 08:36] LABS: BASO % 0.5 % (0-2.0); EOS % 0.9 % (0-4.5); HEMATOCRIT 44.4 % (35.4-49); HEMOGLOBIN 15.3 GM/dL (11.7-16.9); LYMPH % 25.1 % (8-40); MCH 31.5 pg (25.7-33.7); MCHC 34.5 g/dl (32.0-35.9); MEAN CELL VOLUME 91.4 fl (80-96); MEAN PLT VOLUME 8.8 fl (7.5-11.1); MONO % 10.1 % (3.8-10.2); NEUT % 63.4 % (42.8-82.8); PLATELET COUNT 227 10^3/uL (134-434); RBC 4.86 M/mm3 (4.00-5.60); RDW 14.2 % (11.9-15.9); WHITE BLOOD COUNT 9.3 K/mm3 (4.0-10.0)
[2022-09-12 08:54] LABS: BLOOD UREA NITROGEN 19.7 mg/dL (7-18); CALCIUM 8.7 mg/dL (8.5-10.1)
[2022-09-12 08:55] LABS: ALBUMIN 3.4 g/dl (3.4-5.0)
[2022-09-12 08:57] LABS: BILIRUBIN,DIRECT 0.4 mg/dL (0.0-0.2); CREATININE 1.4 mg/dL (0.55-1.3)
[2022-09-12 08:59] LABS: BILIRUBIN,TOTAL 0.8 mg/dL (0.2-1); TOT PROT 6.9 g/dl (6.4-8.2)
[2022-09-12] MEDS: FOLIC ACID 1 MG TABLET (FP) PO SCH (09:49)
[2022-09-12] MEDS: MIDODRINE HCL 5 MG TABLET PO SCH ×2 (09:49→17:03)
[2022-09-12] MEDS: DONEPEZIL HCL 5 MG TABLET (FP) PO SCH (09:49)
[2022-09-12] MEDS: ERTAPENEM SODIUM 1 GM in SODIUM CHLORIDE 50 ML IVPB SCH (09:49)
[2022-09-12] MEDS: traZODone HCL 50 MG TABLET (FP) PO SCH (09:49)
[2022-09-12] MEDS: MEMANTINE HCL 5 MG TABLET (UD) PO SCH ×2 (09:50→22:55)
[2022-09-12] MEDS: KETOCONAZOLE 2% CREAM - 60GM TUBE TP SCH ×2 (09:51→23:00)
[2022-09-12] MEDS: AMMONIUM LACTATE 12% CREAM 140 GM TUBE TP SCH (12:33)
[2022-09-13] MEDS: DEXTROSE 5%-0.45% SALINE 1,000 ML IV SCH ×3 (05:41→23:51)
[2022-09-13] MEDS: INSULIN SLIDING SCALE (NOVOLOG) 1 VIAL SQ SCH ×4 (06:55→23:05)
[2022-09-13 09:14] LABS: BASO % 0.7 % (0-2.0); EOS % 1.6 % (0-4.5); HEMATOCRIT 44.5 % (35.4-49); HEMOGLOBIN 15.4 GM/dL (11.7-16.9); LYMPH % 27.4 % (8-40); MCH 31.8 pg (25.7-33.7); MCHC 34.6 g/dl (32.0-35.9); MEAN CELL VOLUME 91.7 fl (80-96); MEAN PLT VOLUME 9.7 fl (7.5-11.1); MONO % 8.3 % (3.8-10.2); PLATELET COUNT 210 10^3/uL (134-434); RBC 4.85 M/mm3 (4.00-5.60); WHITE BLOOD COUNT 10.3 K/mm3 (4.0-10.0)
[2022-09-13 09:19] LABS: INR 1.06 (0.83-1.09); PROTHROMBIN TIME (PATIENT) 12.3 SEC (9.7-13.0)
[2022-09-13 09:33] LABS: CALCIUM 8.7 mg/dL (8.5-10.1)
[2022-09-13 09:34] LABS: ALBUMIN 3.2 g/dl (3.4-5.0); BLOOD UREA NITROGEN 16.2 mg/dL (7-18)
[2022-09-13 09:37] LABS: CREATININE 1.4 mg/dL (0.55-1.3)
[2022-09-13 09:39] LABS: BILIRUBIN,TOTAL 1.9 mg/dL (0.2-1); TOT PROT 6.9 g/dl (6.4-8.2)
[2022-09-13] MEDS: MIDODRINE HCL 5 MG TABLET PO SCH ×2 (10:08→17:14)
[2022-09-13] MEDS: FOLIC ACID 1 MG TABLET (FP) PO SCH (10:08)
[2022-09-13] MEDS: traZODone HCL 50 MG TABLET (FP) PO SCH (10:08)
[2022-09-13] MEDS: DONEPEZIL HCL 5 MG TABLET (FP) PO SCH (10:08)
[2022-09-13] MEDS: MEMANTINE HCL 5 MG TABLET (UD) PO SCH ×2 (10:08→23:51)
[2022-09-13] MEDS: ERTAPENEM SODIUM 1 GM in SODIUM CHLORIDE 50 ML IVPB SCH (10:09)
[2022-09-13] MEDS: KETOCONAZOLE 2% CREAM - 60GM TUBE TP SCH ×2 (11:38→23:04)
[2022-09-13] MEDS: AMMONIUM LACTATE 12% CREAM 140 GM TUBE TP SCH (11:38)
[2022-09-13] MEDS ORDERED: SODIUM ZIRCONIUM CYCLOSILICATE (LOKELMA) 5 GM PACKET PO SCH (12:30)
[2022-09-14] MEDS: INSULIN SLIDING SCALE (NOVOLOG) 1 VIAL SQ SCH ×4 (07:10→22:54)
[2022-09-14] MEDS: MIDODRINE HCL 5 MG TABLET PO SCH ×2 (10:25→19:03)
[2022-09-14] MEDS: FOLIC ACID 1 MG TABLET (FP) PO SCH (10:25)
[2022-09-14] MEDS: DONEPEZIL HCL 5 MG TABLET (FP) PO SCH (10:25)
[2022-09-14] MEDS: MEMANTINE HCL 5 MG TABLET (UD) PO SCH ×2 (10:26→22:54)
[2022-09-14] MEDS: traZODone HCL 50 MG TABLET (FP) PO SCH (10:26)
[2022-09-14] MEDS: AMMONIUM LACTATE 12% CREAM 140 GM TUBE TP SCH (10:27)
[2022-09-14] MEDS: ERTAPENEM SODIUM 1 GM in SODIUM CHLORIDE 50 ML IVPB SCH (10:27)
[2022-09-14] MEDS: KETOCONAZOLE 2% CREAM - 60GM TUBE TP SCH ×2 (10:28→22:54)
[2022-09-14 14:00] VITALS: BMI 23.4
[2022-09-14] MEDS: HEPARIN NA (PORCINE) 5,000 UNITS/ML 1ML VIAL SQ SCH ×2 (15:19→22:54)
[2022-09-14] MEDS: DEXTROSE 5%-0.45% SALINE 1,000 ML IV SCH (22:52)
[2022-09-15] MEDS: HEPARIN NA (PORCINE) 5,000 UNITS/ML 1ML VIAL SQ SCH ×3 (07:30→23:33)
[2022-09-15 08:04] VITALS: RESP 20
[2022-09-15] MEDS: INSULIN SLIDING SCALE (NOVOLOG) 1 VIAL SQ SCH ×4 (08:08→23:46)
[2022-09-15 10:12] LABS: BLOOD UREA NITROGEN 14.2 mg/dL (7-18); CALCIUM 8.9 mg/dL (8.5-10.1); MAGNESIUM 2.4 mg/dL (1.8-2.4)
[2022-09-15 10:14] LABS: CREATININE 1.3 mg/dL (0.55-1.3)
[2022-09-15 10:16] LABS: BILIRUBIN,TOTAL 2.9 mg/dL (0.2-1); TOT PROT 6.5 g/dl (6.4-8.2)
[2022-09-15] MEDS: MIDODRINE HCL 5 MG TABLET PO SCH ×2 (10:36→17:21)
[2022-09-15] MEDS: DONEPEZIL HCL 5 MG TABLET (FP) PO SCH (10:36)
[2022-09-15] MEDS: FOLIC ACID 1 MG TABLET (FP) PO SCH (10:36)
[2022-09-15] MEDS: traZODone HCL 50 MG TABLET (FP) PO SCH (10:36)
[2022-09-15] MEDS: MEMANTINE HCL 5 MG TABLET (UD) PO SCH (10:38)
[2022-09-15] MEDS: ERTAPENEM SODIUM 1 GM in SODIUM CHLORIDE 50 ML IVPB SCH (10:40)
[2022-09-15] MEDS: AMMONIUM LACTATE 12% CREAM 140 GM TUBE TP SCH (10:41)
[2022-09-15] MEDS: KETOCONAZOLE 2% CREAM - 60GM TUBE TP SCH ×2 (10:41→23:34)
[2022-09-15 11:57] LABS: BASO % 0.4 % (0-2.0); EOS % 0.4 % (0-4.5); HEMATOCRIT 43.9 % (35.4-49); HEMOGLOBIN 14.9 GM/dL (11.7-16.9); LYMPH % 19.8 % (8-40); MCH 30.7 pg (25.7-33.7); MCHC 33.8 g/dl (32.0-35.9); MEAN CELL VOLUME 90.9 fl (80-96); MEAN PLT VOLUME 9.4 fl (7.5-11.1); MONO % 7.2 % (3.8-10.2); NEUT % 72.2 % (42.8-82.8); PLATELET COUNT 215 10^3/uL (134-434); RBC 4.83 M/mm3 (4.00-5.60); RDW 14.2 % (11.9-15.9); WHITE BLOOD COUNT 12.2 K/mm3 (4.0-10.0)
[2022-09-15] MEDS: DEXTROSE 5%-0.45% SALINE 1,000 ML IV SCH (22:56)
[2022-09-16] MEDS: MEMANTINE HCL 5 MG TABLET (UD) PO SCH ×2 (00:11→10:13)
[2022-09-16] MEDS: HEPARIN NA (PORCINE) 5,000 UNITS/ML 1ML VIAL SQ SCH ×2 (06:45→14:11)
[2022-09-16] MEDS: INSULIN SLIDING SCALE (NOVOLOG) 1 VIAL SQ SCH ×2 (08:27→11:55)
[2022-09-16 09:35] LABS: BASO % 0.6 % (0-2.0); HEMATOCRIT 42.8 % (35.4-49); HEMOGLOBIN 14.5 GM/dL (11.7-16.9); LYMPH % 22.2 % (8-40); MCH 30.8 pg (25.7-33.7); MCHC 33.8 g/dl (32.0-35.9); MEAN CELL VOLUME 91.1 fl (80-96); MEAN PLT VOLUME 9.6 fl (7.5-11.1); MONO % 7.5 % (3.8-10.2); NEUT % 68.7 % (42.8-82.8); PLATELET COUNT 194 10^3/uL (134-434); RDW 14.5 % (11.9-15.9); WHITE BLOOD COUNT 14.4 K/mm3 (4.0-10.0)
[2022-09-16 09:50] LABS: ALBUMIN 2.9 g/dl (3.4-5.0); CALCIUM 8.4 mg/dL (8.5-10.1); MAGNESIUM 2.6 mg/dL (1.8-2.4)
[2022-09-16 09:51] LABS: BLOOD UREA NITROGEN 20.4 mg/dL (7-18)
[2022-09-16 09:54] LABS: CREATININE 1.3 mg/dL (0.55-1.3)
[2022-09-16 09:55] LABS: BILIRUBIN,TOTAL 3.6 mg/dL (0.2-1); TOT PROT 6.3 g/dl (6.4-8.2)
[2022-09-16] MEDS: MIDODRINE HCL 5 MG TABLET PO SCH (10:13)
[2022-09-16] MEDS: DONEPEZIL HCL 5 MG TABLET (FP) PO SCH (10:13)
[2022-09-16] MEDS: traZODone HCL 50 MG TABLET (FP) PO SCH (10:13)
[2022-09-16] MEDS: FOLIC ACID 1 MG TABLET (FP) PO SCH (10:14)
[2022-09-16] MEDS: ERTAPENEM SODIUM 1 GM in SODIUM CHLORIDE 50 ML IVPB SCH (10:14)
[2022-09-16] MEDS: AMMONIUM LACTATE 12% CREAM 140 GM TUBE TP SCH (10:14)
[2022-09-16] MEDS: KETOCONAZOLE 2% CREAM - 60GM TUBE TP SCH (10:15)
[2022-09-16 15:59] VITALS: BP 140/77; PULSE 87; TEMP 97.8
== END 2022-09-16 16:11 | disposition home health service (06) | DRG 435 ==
LOC: JER 01:00 → JERBED 04:45 → J8W 20:51
PROVIDERS: ADMIT Internal Medicine; ATTEND Nurse Practitioner Acute Care
DX: C22.1 Intrahepatic bile duct carcinoma (principal); G93.41 Metabolic encephalopathy; K81.0 Acute cholecystitis; N17.9 Acute kidney failure, unspecified; N40.0 Benign prostatic hyperplasia without lower urinary tract symptoms; F01.50 Vascular dementia, unspecified severity, without behavioral disturbance, psychotic disturbance, mood disturbance, and anxiety; N18.9 Chronic kidney disease, unspecified; E11.9 Type 2 diabetes mellitus without complications; R74.01 Elevation of levels of liver transaminase levels
CPT/HCPCS: 0241U-QW; 36415; 74176-TC; 74183-TC; 80048; 80053; 80076; 81003; 82550; 82553; 82962; 82977; 83036; 83735; 84100; 84484; 85025; 85610; 86140; 86704; 86708; 86803; 87086; 87340; 87517; 93005; 93010; 99285-25; A9579; J1644